=== PATIENT | male | born 1955 | race Caucasian/White ===

== ENCOUNTER 2018-09-25 05:34 | Observation (INO) | payer BC ==
[2018-09-23 14:36] LABS: BASOPHILS % 0.5 % (0.0-1.0); EOSINOPHILS # (AUTO) 0.1 (0.0-0.4); EOSINOPHILS % 1.1 % (0.0-6.0); HEMATOCRIT 36.5 % (38.2-49.6); HEMOGLOBIN 12.6 g/dL (14.0-18.0); LYMPHOCYTES # (AUTO) 1.6 (1.0-3.2); LYMPHOCYTES % 18.6 % (18.0-39.1); MEAN CORPUSCULAR HEMOGLOBIN 30.7 pg (28-32); MEAN CORPUSCULAR HGB CONC 34.5 g/dL (31-35); MONOCYTES # (AUTO) 0.9 (0.2-0.8); MONOCYTES % 10.4 % (4.4-11.3); NEUTROPHILS # (AUTO) 5.6 (2.1-6.9); NEUTROPHILS % 66.1 % (38.7-80.0); PLATELET COUNT 213 x10e3/uL (140-360); RED CELL DISTRIBUTION WIDTH 12.9 % (11.7-14.4)
--- NOTE | 2018-09-23 14:45 | Diagnostic Imaging Report ---
EXAMINATION: PA and lateral views of the chest. COMPARISON: None CLINICAL HISTORY: Preoperative study for spinal surgery. DISCUSSION: Lungs are well-inflated. No focal airspace consolidation, pleural effusion, or pneumothorax. Calcified granuloma laterally within the right lower lobe. Tortuous thoracic aorta with atherosclerotic calcification. Normal heart size without overt pulmonary edema. No acute osseous abnormality. IMPRESSION: No acute cardiopulmonary abnormalities. Signed by: Dr. Colin Braxton M.D. on 09/23/2018 2:41 PM
[2018-09-23 14:46] LABS: INR 0.83; PROTHROMBIN TIME 11.9 seconds (11.9-14.5)
[2018-09-23 14:54] LABS: ANION GAP 10.9 mmol/L (8-16); BLOOD UREA NITROGEN 18 mg/dL (7-26); BUN/CREATININE RATIO 18 (6-25); CALCIUM 8.8 mg/dL (8.4-10.2); CARBON DIOXIDE 28 mmol/L (22-29); CHLORIDE 101 mmol/L (98-107); EST GLOMERULAR FILTRATION RATE > 60 ML/MIN (60-); GLUCOSE 98 mg/dL (74-118); POTASSIUM 3.9 mmol/L (3.5-5.1); SODIUM 136 mmol/L (136-145)
[2018-09-23 15:09] LABS: BLAST CELLS % MANUAL 1; LYMPHOCYTES % (MANUAL) 18 % (19-48); MONOCYTES % (MANUAL) 16 % (3.4-9.0); NEUTROPHILS % (MANUAL) 64 % (40-74)
[~2018-09-25] VITALS: Ht 182.9 cm; Wt 97.2 kg
[~2018-09-25 05:34] MED LIST: FENOFIBRATE145 MG PO; GABAPENTIN100 MG PO; LEXAPRO10 MG PO; LISINOPRIL10 MG PO; NORCO 10-325 T1 EACH PO; SIMVASTATIN40 MG PO; TESTOSTERONE5 GM IJ; TRAZODONE HCL50 MG PO; Z.0.LEXAPRO10 MG; Z.0.LISINOPRIL10 MG; Z.0.LOVASTATIN20 MG
--- OUTSIDE RECORDS SUMMARY | 2018-09-25 05:40 | XMS REPORT | Continuity of Care Document ---
Author Author [facility] Interface Address Unknown Phone Unavailable Problems Problem Status Onset Date Classification Date Reported Comments Source LUMBAR Active 08/18/2018 [facility] Body mass index 25-29 - overweight 05/29/2018 Diagnosis 05/29/2018 [facility] Elevated blood pressure 05/29/2018 Diagnosis 05/29/2018 [facility] Acute sinusitis 05/29/2018 Diagnosis 05/29/2018 [facility] Hypercholesterolemia 05/29/2018 Problem 05/29/2018 [facility] Anxiety 05/29/2018 Problem 05/29/2018 [facility] Hypertensive Disorder 05/29/2018 Problem 05/29/2018 [facility] Radiculopathy, lumbar region 03/01/2018 09/15/2018 [facility] DX: M54.16L KNEE REPLACEMENT 2012 Active 02/12/2018 [facility] M54.16 Active 12/09/2017 [facility] Gastroenteritis 05/08/2017 Diagnosis 05/08/2017 [facility] Acute maxillary sinusitis 03/03/2016 Diagnosis 03/03/2016 [facility] Eustachian tube disorder 03/03/2016 Diagnosis 03/03/2016 [facility] Abnormal blood pressure 03/03/2016 Diagnosis 03/03/2016 [facility] 715.96 Active 07/10/2012 [facility] LEFT KNEE OSTEOARTHRITIS Active 06/03/2012 [facility] 719.46 LEFT Active 04/22/2000 [facility] Cyst of kidney, acquired 09/15/2018 [facility] Spondylosis without myelopathy or radiculopathy, lumbar region 09/15/2018 [facility] Spinal stenosis, lumbar region without neurogenic claudication 09/15/2018 [facility] Anxiety depression Resolved Problem 09/15/2018 [facility] Back pain Resolved Problem 09/15/2018 [facility] HTN - Hypertension Active Problem 09/15/2018 [facility] Injury of knee Active Problem 09/15/2018 [facility] Near syncope Active Problem 09/15/2018 [facility] OA - Osteoarthritis Resolved Problem 09/15/2018 [facility] Spinal stenosis, lumbosacral region 06/28/2018 [facility] Spondylosis without myelopathy or radiculopathy, lumbosacral region 06/28/2018 [facility] depression Resolved Problem 09/04/2012 [facility] Back pain Resolved Problem 09/04/2012 [facility] HTN - Hypertension Active Problem 09/04/2012 [facility] Injury of knee Active Problem 09/04/2012 [facility] Near syncope Active Problem 09/04/2012 [facility] OA - Osteoarthritis Resolved Problem 09/04/2012 [facility] Panic disorder without agoraphobia Active Problem 02/16/2015 April Salter HTN Hypertension - Unspecified essential hypertension Active Problem 02/16/2015 April Salter hyperlipidemia - Other and unspecified hyperlipidemia Active Problem 02/16/2015 April Salter Impotence of organic origin Active Problem 02/16/2015 April Salter Nonspecific abnormal results of liver function study Active Problem 02/16/2015 April Salter Acute bronchitis Active Problem 02/16/2015 April Salter Derangement of posterior horn of medial meniscus Active Problem 02/16/2015 April Salter Agoraphobia with panic disorder Active Problem 02/16/2015 April Salter Knee joint replacement by other means Active Problem 02/16/2015 April Salter Mixed hyperlipidemia Active Problem 02/16/2015 April Salter Generalized anxiety disorder Active Problem 02/16/2015 April Salter Unspecified tinnitus Active Problem 02/16/2015 April Salter Allergic rhinitis due to other allergen Active Problem 02/16/2015 April Salter Other testicular hypofunction Active Problem 02/16/2015 April Salter Impotence Active Problem 02/16/2015 April Salter Rotator cuff sprain and strain Active Problem 02/16/2015 April Salter Depressive disorder, not elsewhere classified Active Problem 02/16/2015 April Salter Other late effects of cerebrovascular disease Active Problem 02/16/2015 April Salter Allergic rhinitis Active Diagnosis 02/16/2015 April Salter Low testosterone Active Diagnosis 02/16/2015 April Salter 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 Active Diagnosis 02/16/2015 April Salter Depression with anxiety Active Diagnosis 02/16/2015 April Salter Hyperlipidemia Active Diagnosis 02/16/2015 April Salter Insomnia Active Problem 03/26/2018 April Salter,[id number] Mixed hyperlipidemia Active Problem 03/26/2018 [id number] Rotator cuff tear arthropathy of right shoulder Active Problem 03/26/2018 [id number] HTN , benign Active Problem 03/26/2018 [id number] Anxiety Active Problem 03/26/2018 [id number] Hypotestosteronemia Active Problem 03/26/2018 [id number] HLD Active Problem 03/26/2018 [id number] Arthritis of right shoulder region Active Problem 03/26/2018 [id number] Hypotestosteronemia Active Diagnosis 02/28/2017 2.16.840.1.004579.4.391.11.55079 Flu vaccine need Active Diagnosis 03/26/2018 [id number] HTN Active Diagnosis 03/01/2016 April Salter,[id number] Rotator cuff injury, right, subsequent encounter Active Diagnosis 06/21/2016 [id number] HTN , malignant Active Diagnosis 08/17/2016 [id number] Encounter for screening Active Diagnosis 03/26/2018 [id number] Lumbar radiculopathy, acute Active Diagnosis 03/26/2018 [id number] Acute Sinusitis Problem 03/03/2016 [facility] Acute Maxillary Sinusitis Problem 03/03/2016 [facility] Upper Respiratory Tract Hypersensitivity Reaction Problem 03/03/2016 [facility] Eustachian Tube Disorder Problem 03/03/2016 [facility] ADMINISTRTVE ENCOUNT NOS Active [facility] LT KNEE TKR Active [facility] Medications Medication Details Route Status Patient Instructions Ordering Provider Order Date Source Tramadol HCl 1 tablet as needed Orally Active 50 mg Orally every 6 hrs Devon 12/20/2017 [id number] Pregabalin 1 capsule Orally Active 75 mg Orally twice a day (bid) Devon 12/20/2017 [id number] BusPIRone HCl 1 tablet Orally Active 15 MG Orally Twice a day Devon 07/20/2016 [id number] Lisinopril 1 tablet Orally Active 30 MG Orally Once a day Devon 06/18/2016 [id number] Lisinopril 1 tablet Orally Active 30 MG Orally Once a day Devon 06/18/2016 [id number] BusPIRone HCl 1 tablet Orally Active 7.5 MG Orally Twice a day Devon 06/18/2016 [id number] Lisinopril 1 tablet Orally Active 20 MG Orally Once a day Devon 06/08/2016 [id number] Fenofibrate 1 tablet Orally Active 48 MG Orally Once a day Devon 12/20/2015 [id number] Aspirin 1 tablet Orally Active 325 MG Orally Once a day Fang 12/11/2015 April Salter Eighty Four 1 tablet as needed Orally Active 7.5-325 MG Orally every 6 hrs Fan 03/05/2014 April Salter rivaroxaban 10 mg oral tablet 10 mg, 1 tab, PO, Daily, 12 tab, Substitution Allowed, TAB PO Active Stevo 07/04/2012 [facility] Zocor 20 mg, 1 tab, Route: PO, Drug form: TAB, QPM, Dosing Weight 90.909, kg, Start date: 07/02/12 9:00:00, Stop date: 07/31/12 17:00:00 PO No Longer Active Stevo 07/02/2012 [facility] lisinopril 10 mg, 1 tab, Route: PO, Drug form: TAB, Daily, Dosing Weight 90.909, kg, Start date: 07/02/12 9:00:00, Duration: 30 day, Stop date: 07/31/12 9:00:00 PO No Longer Active Stevo 07/02/2012 [facility] Lexapro 20 mg, 1 tab, Route: PO, Drug form: TAB, Daily, Dosing Weight 90.909, kg, Start date: 07/02/12 9:00:00, Duration: 30 day, Stop date: 07/31/12 9:00:00 PO No Longer Active Stevo 07/02/2012 [facility] aspirin 81 mg, 1 tab, Route: PO, Drug form: CHEWTAB, Daily, Dosing Weight 90.909, kg, Start date: 07/02/12 9:00:00, Duration: 30 day, Stop date: 07/31/12 9:00:00 PO No Longer Active Stevo 07/02/2012 [facility] rivaroxaban 10 mg, 1 tab, Route: PO, Drug form: TAB, Daily, Start date: 07/01/12 21:00:00, Duration: 30 day, Stop date: 07/30/12 21:00:00 PO No Longer Active [facility] 07/02/2012 [facility] cefazolin 2 gm, 100 mL, Route: IVPB, Drug form: INJ, ABXQ8H, Start date: 07/01/12 16:00:00, Duration: 3 doses or times, Stop date: 07/02/12 8:00:00 IVPB No Longer Active [facility] 07/01/2012 [facility] Toradol 30 mg/mL injectable solution 30 mg, 1 mL, Route: IV, Drug form: INJ, Q8H, Dosing Weight 90.909, kg, PRN Pain, Start date: 07/01/12 14:52:00, Duration: 4 day, Stop date: 07/05/12 14:51:00, If pain greater than 4 IV No Longer Active Stevo 07/01/2012 [facility] Eighty Four 10/325 oral tablet Route: PO, Drug Form: TAB, Dosing Weight 90.909, kg, Q6H, PRN as needed for pain, Start date: 07/01/12 13:56:00, Duration: 30 day, Stop date: 07/31/12 13:55:00 PO No Longer Active Stevo 07/01/2012 [facility] Eighty Four 10/325 oral tablet 1 tab, Route: PO, Drug Form: TAB, Dosing Weight 90.909, kg, Q4H, PRN as needed for pain, Start date: 07/01/12 13:54:00, Duration: 30 day, Stop date: 07/31/12 13:53:00 PO No Longer Active [facility]vo 07/01/2012 [facility] ondansetron 4 mg, 2 mL, Route: IVP, Drug form: INJ, ONCE, Dosing Weight 90.909, kg, PRN Nausea & Vomiting, Start date: 07/01/12 9:57:00, Duration: 1 doses or times, Stop date: Limited # of times IVP No Longer Active [facility] 07/01/2012 [facility] acetaminophen-oxycodone 325 mg-5 mg oral tablet 2 tab, Route: PO, Drug Form: TAB, Dosing Weight 90.909, kg, Q4H, PRN Pain Score 7-10, Start date: 07/01/12 9:57:00, Duration: 30 day, Stop date: 07/31/12 9:56:00 PO No Longer Active [facility] 07/01/2012 [facility] naloxone 0.04 mg, 0.1 mL, Route: IVP, Drug form: INJ, Q2MIN, Dosing Weight 90.909, kg, PRN Narcotic Reversal, Start date: 07/01/12 9:57:00, Duration: 30 day, Stop date: 07/31/12 9:56:00 IVP No Longer Active [facility] 07/01/2012 [facility] ropivacaine 0.2% in NS - site 1 400 mL Dosincc/hr, Route: NERVE BLOCK, Start date: 07/01/12 9:57:00 400 mL, Drug Form: INJ, Dosing Weight 90.909, kg, Duration: 30 day, Stop date: 07/31/12 9:56:00 NERVE BLOCK [facility] rivaroxaban 10 mg, Route: PO, Daily, Dosing Weight 90.909, kg, Start date: 07/01/12 9:00:00, Duration: 30 day, Stop date: 07/30/12 9:00:00 PO No Longer Active [facility] 07/01/2012 [facility] docusate 100 mg, 1 cap, Route: PO, Drug form: CAP, BID, Dosing Weight 90.909, kg, Start date: 07/01/12 9:00:00, Duration: 30 day, Stop date: 07/30/12 17:00:00 PO No Longer Active [facility] 07/01/2012 [facility] flumazenil 0.2 mg, 2 mL, Route: IVP, Drug form: INJ, PRN, Dosing Weight 90.909, kg, PRN Benzodiazepine Reversal, Initial dose, Start date: 07/01/12 8:56:00, Duration: 30 day, Stop date: 07/31/12 8:55:00 IVP No Longer Active [facility] 07/01/2012 [facility] naloxone 0.04 mg, 0.1 mL, Route: IVP, Drug form: INJ, Q2MIN, Dosing Weight 90.909, kg, PRN Narcotic Reversal, Start date: 07/01/12 8:56:00, Duration: 8 doses or times, Stop date: Limited # of times IVP No Longer Active [facility] 07/01/2012 [facility] hydromorphone 0.5 mg, 0.25 mL, Route: IVP, Drug form: INJ, Q5Min, Dosing Weight 90.909, kg, PRN Pain Score 6-10, Start date: 07/01/12 8:56:00, Duration: 5 doses or times, Stop date: Limited # of times IVP No Longer Active [facility] 07/01/2012 [facility] morphine Sulfate 2 mg, 1 mL, Route: IVP, Drug form: INJ, Q5Min, Dosing Weight 90.909, kg, PRN Pain Score 4-6, Start date: 07/01/12 8:56:00, Duration: 8 doses or times, Stop date: Limited # of times IVP No Longer Active [facility] 07/01/2012 [facility] ondansetron 4 mg, 2 mL, Route: IVP, Drug form: INJ, ONCE, Dosing Weight 90.909, kg, PRN Nausea & Vomiting, Start date: 07/01/12 8:56:00 IVP No Longer Active [facility] 07/01/2012 [facility] enalapril 0.625 mg, 0.5 mL, Route: IVP, Drug form: INJ, Q5Min, Dosing Weight 90.909, kg, PRN Elevated BP, Start date: 07/01/12 8:56:00, Duration: 4 doses or times, Stop date: Limited # of times IVP No Longer Active [facility] 07/01/2012 [facility] labetalol 5 mg, 1 mL, Route: IVP, Drug form: INJ, Q5Min, Dosing Weight 90.909, kg, PRN Elevated BP, Start date: 07/01/12 8:56:00, Duration: 5 doses or times, Stop date: Limited # of times IVP No Longer Active [facility] 07/01/2012 [facility] cefazolin (SCIP) 2 gm, Route: IVPB, Drug form: INJ, Q8H, Dosing Weight 90.909, kg, Start date: 07/01/12 8:00:00, Duration: 3 doses or times, Stop date: 07/02/12 0:00:00 IVPB No Longer Active [facility] 07/01/2012 [facility] Saline Flush 0.9% 3 mL, Route: IVP, Drug Form: INJ, Dosing Weight 90.909, kg, PRN, PRN Line Flush, Start date: 07/01/12 7:18:00, Duration: 30 day, Stop date: 07/31/12 7:17:00 IVP No Longer Active [facility] 07/01/2012 [facility] Dextrose 5% with 0.9% NaCl IV 1,000 mL 1,000 mL, Rate: 100 ml/hr, Infuse over: 10 hr, Route: IV, kg, Total Volume: 1,000, Start date: 07/01/12 7:18:00, Duration: 30 day, Stop date: 07/31/12 7:17:00 IV No Longer Active [facility] 07/01/2012 [facility] Eighty Four 10/325 oral tablet 1 tab, Route: PO, Drug Form: TAB, Dosing Weight 90.909, kg, Q4H, PRN Pain, Start date: 07/01/12 7:18:00, Duration: 30 day, Stop date: 07/31/12 7:17:00 PO No Longer Active [facility] 07/01/2012 [facility] Fleet Enema 133 mL, Route: OH, Drug Form: TYLER, Dosing Weight 90.909, kg, PRN, PRN as needed for constipation, Start date: 07/01/12 7:18:00, Duration: 30 day, Stop date: 07/31/12 7:17:00 OH No Longer Active [facility] 07/01/2012 [facility] Milk of Magnesia 30 ml, Route: PO, Drug Form: SUSP, Dosing Weight 90.909, kg, PRN, PRN as needed for constipation, Start date: 07/01/12 7:18:00, Duration: 30 day, Stop date: 07/31/12 7:17:00 PO No Longer Active [facility] 07/01/2012 [facility] promethazine 25 mg, 1 mL, Route: IM, Drug form: INJ, Q8H, Dosing Weight 90.909, kg, PRN Nausea & Vomiting, Start date: 07/01/12 7:18:00, Duration: 30 day, Stop date: 07/31/12 7:17:00 IM No Longer Active [facility] 07/01/2012 [facility] diphenhydrAMINE 25 mg, 1 cap, Route: PO, Drug form: CAP, Q6H, Dosing Weight 90.909, kg, PRN Itching, Start date: 07/01/12 7:18:00, Duration: 30 day, Stop date: 07/31/12 7:17:00 PO No Longer Active [facility] 07/01/2012 [facility] morphine Sulfate 8 mg, 0.8 mL, Route: IM, Drug form: INJ, Q4H, Dosing Weight 90.909, kg, PRN Pain Score 7-10, Start date: 07/01/12 7:18:00, Duration: 30 day, Stop date: 07/31/12 7:17:00 IM No Longer Active [facility] 07/01/2012 [facility] ketorolac 15 mg, 0.5 mL, Route: IVP, Drug form: INJ, Q6H, Dosing Weight 90.909, kg, PRN Breakthrough Pain, Start date: 07/01/12 7:18:00, Duration: 4 doses or times, Stop date: Limited # of times IVP No Longer Active [facility] 07/01/2012 [facility] ondansetron 4 mg, 2 mL, Route: IVP, Drug form: INJ, Q8H, Dosing Weight 90.909, kg, PRN Nausea & Vomiting, Start date: 07/01/12 7:18:00, Duration: 30 day, Stop date: 07/31/12 7:17:00 IVP No Longer Active [facility] 07/01/2012 [facility] zolpidem 5 mg, 1 tab, Route: PO, Drug form: TAB, Bedtime, Dosing Weight 90.909, kg, PRN Insomnia, Start date: 07/01/12 7:18:00, Duration: 30 day, Stop date: 07/31/12 7:17:00 PO No Longer Active [facility] 07/01/2012 [facility] acetaminophen 650 mg, 20.3 mL, Route: PO, Drug form: LIQ, Q4H, Dosing Weight 90.909, kg, PRN Pain/Fever, Start date: 07/01/12 7:18:00, Duration: 30 day, Stop date: 07/31/12 7:17:00 PO No Longer Active [facility] 07/01/2012 [facility] Eighty Four 10/325 oral tablet 1-2 tab, PO, Q4-6H, PRN, 40 tab, Pain, Substitution Allowed, Maintenance PO Active [facility] 07/01/2012 [facility] Lactated Ringers Injection IV 1,000 mL 1,000 mL, Rate: 25 ml/hr, Infuse over: 40 hr, Route: IV, kg, Total Volume: 1,000, Start date: 07/01/12 7:06:00, Duration: 30 day, Stop date: 07/31/12 7:05:00 IV No Longer Active [facility] 07/01/2012 [facility] cefazolin 2 gm, 100 mL, Route: IVPB, Drug form: INJ, VICTORINOALL, Start date: 07/01/12 0:00:00, Duration: 1 doses or times IVPB No Longer Active [facility] 07/01/2012 [facility] aspirin 81 mg, PO, Daily, Substitution Allowed PO Active [facility] 06/13/2012 [facility] Motrin 400 mg oral tablet 400 mg, 1 tab, PO, Q4H, PRN, 60 tab, Pain, Substitution Allowed, TAB PO Active 06/13/2012 [facility] Zocor 20 mg oral tablet 20 mg, 1 tab, PO, Daily, 90 tab, Substitution Allowed, Maintenance PO Active Stevo 06/13/2012 [facility] Lexapro 20 mg oral tablet 20 mg, 1 tab, PO, Daily, 90 tab, Substitution Allowed, TAB PO Active Stevo 06/13/2012 [facility] lisinopril 10 mg oral tablet 10 mg, 1 tab, PO, Daily, 90 tab, Substitution Allowed, TAB PO Active Stevo 06/13/2012 [facility] Eighty Four 10/325 oral tablet 1 tab, PO, Q4H, PRN, 24 tab, for pain, Substitution Allowed, Maintenance PO No Longer Active Stevo 06/13/2012 [facility] Testosterone Cypionate inject 1 ml every 2 weeks as directed Intramuscular Active 200 MG/ML Intramuscular Joie Salter Aspirin 1 tablet Orally Active 325 MG Orally Once a day Joie Salter Escitalopram Oxalate TAKE 1 TABLET BY MOUTH ONCE A DAY NA Active 20 Joie Salter Xanax 1 tablet Orally Active 0.5 MG Orally twice a day (bid) as needed (prn) Joie Salter Flonase 1 spray in each nostril Nasally Active 50 MCG/ACT Nasally Once a day Joie Satler Trazodone HCl 1 tablet by mouth Active 100 MG by mouth Once a day Devon [id number] Simvastatin 1 tablet in the evening Orally Active 40 MG Orally Once a day Devon April Salter,[id number] Fenofibrate 1 tablet Orally Active 48 MG Orally Once a day Devon [id number] Testosterone Cypionate 1 ml Intramuscular Active 200 MG/ML Intramuscular EVERY TWO WEEKS Devon .[id number] Escitalopram Oxalate 1 tablet Orally Active 20 MG Orally Once a day Devon [facility],[id number]. Alprazolam 1 tablet Orally Active 0.5 MG Orally Three times a day Devon [id number] Lisinopril TAKE 1 TABLET BY MOUTH EVERY DAY NA Active 20 Devon [id number]. Escitalopram Oxalate 1 tablet Orally Active 20 mg Orally Once a day Devon [id number]. Lisinopril 1 tablet Orally No Longer Active 10 mg Orally Once a day Devon [facility],[id number] Trazodone HCl 1 tablet at bedtime Orally Active 100 MG Orally Once a day Devon [facility],[id number] Alprazolam 1 tablet Orally Active 0.5 MG Orally Three times a day Devon [id number] Testosterone Cypionate 1 ml Intramuscular Active 200 MG/ML Intramuscular EVERY TWO WEEKS Devon [id number] Trazodone HCl 1 tablet by mouth Active 100 MG by mouth Once a day Devon [id number] Simvastatin 1 tablet in the evening Orally Active 40 MG Orally Once a day Devon [id number]. Alprazolam 0.5 MG Oral Tablet alprazolam 0.5 mg tablet TK 1 T PO TID Active [facility] Amoxicillin 875 MG / Clavulanate 125 MG Oral Tablet [Augmentin] Augmentin 875 mg-125 mg tablet Take 1 tablet every 12 hours by oral route for 10 days. Active [facility] Escitalopram 20 MG Oral Tablet escitalopram 20 mg tablet TK 1 T PO QD Active [facility] Fenofibrate 48 MG Oral Tablet fenofibrate nanocrystallized 48 mg tablet TK 1 T PO QD Active [facility] Fluticasone propionate 0.05 MG/ACTUAT Metered Dose Nasal [facility] fluticasone 50 mcg/actuation nasal spray,suspension [place] 1 spray every day by intranasal route. Active [facility] Lisinopril 30 MG Oral Tablet lisinopril 30 mg tablet TK 1 T PO QD Active [facility] Simvastatin 40 MG Oral Tablet simvastatin 40 mg tablet TK 1 T PO QD IN THE SILVANA Active [facility] 1 ML testosterone cypionate 200 MG/ML Injection testosterone cypionate 200 mg/mL intramuscular oil INJ 1 ML INTRAMUSCULAR Q 2 WEEKS Active [facility] Trazodone Hydrochloride 100 MG Oral Tablet trazodone 100 mg tablet TK 1 T PO QD Active [facility] Metronidazole 500 MG Oral Tablet metronidazole 500 mg tablet Take 1 tablet every 8 hours by oral route as directed for 7 days. Active [facility] testosterone cypionate 200 MG/ML Injectable Solution testosterone cypionate 200 mg/mL intramuscular oil INJECT 1 ML IM Q 2 WEEKS Active [facility] 0.65 ML Varicella-Zoster Virus Vaccine Live ([facility]) strain [id number] UNT/ML Injection [Zostavax] Zostavax (PF) 19,400 unit/0.65 mL subcutaneous suspension Active [facility] Brompheniramine Maleate 0.4 MG/ML / Dextromethorphan Hydrobromide 2 MG/ML / Pseudoephedrine Hydrochloride 6 MG/ML Oral Solution [Bromfed DM] Bromfed DM 2 mg-30 mg-10 mg/5 mL syrup Take 10 mL every 6 hours by oral route as needed for cough. Active [facility] lisinopril lisinopril Active [facility] lovastatin lovastatin Active [facility] Azithromycin 250 MG Oral Tablet Zithromax Z-Donnie 250 mg tablet take as directed Active [facility] benzonatate 200 MG Oral Capsule benzonatate 200 mg capsule Take 1 capsule 3 times a day by oral route as needed for cough. Active [facility] Allergies, Adverse Reactions, Alerts Substance Category Reaction Severity Reaction type Status Date Reported Comments Source Sulfa (Sulfonamide Antibiotics) Other Allergy to substance 10/30/2008 [facility] Sulfur Adverse Reaction rash Adverse Reaction Active 02/14/2015 Kaisen Fang sulfa Adverse Reaction Info Not Available Adverse Reaction Active 02/08/2017 [id number] Codeine Allergy to substance 05/08/2017 [facility] Codeine Sulfate Adverse Reaction Info Not Available Adverse Reaction Active 01/31/2018 [id number] sulfa drugs drug allergy Allergy Active [facility] codeine drug allergy Allergy Active [facility] Immunizations Immunization Date Given Site Status Last Updated Comments Source influenza, injectable, quadrivalent 02/20/2018 completed [facility] INFLUENZA II Multi 01/31/2018 completed [id number] Influenza Vaccine 02/08/2017 completed [id number] influenza, unspecified formulation 01/20/2017 completed [facility] zoster, unspecified formulation 07/20/2016 completed [facility] influenza, seasonal, injectable 01/20/2015 completed [facility] FLU VACCINE NO PRESERV 3 & > 03/05/2014 completed Kaisen Fang Results Order Name Results Value Reference Range Date Interpretation Comments Source Spine lumbar wo contrast MRI Spine lumbar wo contrast MRI Patient Name: BEATRIZ COLEMAN : 1955; Age: 62 years y/o Male MR: [id number] Study: Spine lumbar wo contrast MRI 02/25/2018 7:11 PM [employer] Ordering Physician: Anibal Osorio MD Clinical Indication: M54.16 Radiculopathy, lumbar region - .; Comparison: None TECHNIQUE: Multiplanar T1, T2, STIR weighted noncontrast MRI of the lumbar spine is performed on the 3 Alejandra magnet. FINDINGS: 5 nonrib-bearing lumbar vertebral bodies are presumed to be present. L1-L2 trace retrolisthesis. Otherwise, the alignment is maintained. The vertebral bodies are normal in height. The disc heights are well-maintained. The marrow signal is unremarkable for age. The conus medullaris terminates normally at L1. Small renal cysts are partially visualized. Ultrasound assessment to be considered. Changes by levels: L5-S1: Left laminectomy. Moderate size disc bulge osteophyte complex and facet arthrosis with moderate right and mild left foraminal stenosis. The cauda equina nerve roots are along the periphery of the sac, mild arachnoiditis is not excluded. L4-L5: Moderate-sized disc bulge osteophyte complex and moderate facet arthrosis/ligamentum flavum thickening. There is moderate foraminal stenosis. No central canal and lateral recess stenosis. L3-L4: Moderate-sized disc bulge osteophyte complex asymmetric to the left. Mild facet arthrosis/ligamentum flavum thickening. There is moderate left and mild right foraminal stenosis. The central canal is borderline in caliber. L2-L3: Small disc bulge osteophyte complex and trace retrolisthesis. No stenosis. L1-L2: Small disc bulge osteophyte complex and 2 mm retrolisthesis. No stenosis. T12-L1: Small diffuse disc bulge. No stenosis. IMPRESSION: Degenerative changes in the lower lumbar spine with moderate foraminal stenosis. Left laminectomy at L5-S1. Partially visualized 1.5 cm left renal cysts. Further assessment with ultrasound to be considered.. 02/25/2018 - - Read by: Anne Lazaroap Dictated Date/time: 02/26/18 10:25 Electronically Signed by: Anne Lazaro 02/26/18 10:28 FINAL REPORT [facility] Spine lumbar 2 or 3 views DX Spine lumbar 2 or 3 views DX LUMBAR SPINE Clinical Indication: - M54.16 Radiculopathy, lumbar region Comparison: None FINDINGS: The AP, lateral, and coned-down views of the lumbar spine show five non rib bearing lumbar vertebral segments. There are no fractures, pars defects, or spondylolisthesis. There is narrowing of the L5-S1 disc space and mild anterior spurring diffusely of the lumbar spine. The spinous processes and transverse processes are intact. There is hypertrophic change of the posterior elements of L4-S1. The paraspinal soft tissues are unremarkable. If there is further concern or neurological abnormalities on clinical exam, MRI or CT of the lumbar spine may be performed for complete assessment. IMPRESSION: 1. Narrowing of the L5-S1 disc space. 2. Mild anterior spurring diffusely of the lumbar spine. 3. Hypertrophic degenerative joint disease the posterior elements of L4-S1. SL: [id number] 12/09/2017 - - Read by: Doris Deng MD Dictated Date/time: 12/10/17 00:48 Electronically Signed by: Doris Deng MD 12/10/17 00:57 FINAL REPORT [facility] Influenza A negative 05/08/2017 [facility] Influenza B negative 05/08/2017 [facility] HEMATOLOGY Hct 26.9 % 42.0 - 54.0 07/03/2012 LOW [facility] HEMATOLOGY Hgb 9.1 g/dL 14.0 - 18.0 07/03/2012 LOW [facility] CHEMISTRY eGFR 96 mL/min/1.73m2 07/02/2012 NA 2Result Comment: The eGFR is calculated using the CKD-EPI formula. In most young, healthy individuals the eGFR will be >90 mL/min/1.73m2. The eGFR declines with age. An eGFR of 60-89 may be normal in some populations, particularly the elderly, for whom the CKD-EPI formula has not been extensively validated. Use of the eGFR is not recommended in the following populations: Individuals with unstable creatinine concentrations, including patients and those with serious co-morbid conditions. Patients with extremes in muscle mass or diet. The data above are obtained from the National Kidney Disease Education Program (NKDEP) which additionally recommends that when the eGFR is used in patients with extremes of body mass index for purposes of drug dosing, the eGFR should be multiplied by the estimated BMI. [facility] CHEMISTRY Potassium Lvl 3.9 meq/L 3.5 - 5.1 07/02/2012 Normal [facility] CHEMISTRY Chloride Lvl 104 meq/L 95 - 109 07/02/2012 Normal [facility] CHEMISTRY Calcium Lvl 8.2 mg/dL 8.5 - 10.5 07/02/2012 LOW [facility] CHEMISTRY CO2 31 meq/L 24 - 32 07/02/2012 Normal [facility] CHEMISTRY Glucose Lvl 131 mg/dL 70 - 99 07/02/2012 HI 3Interpretive Data: Adult reference range values reflect the clinical guidelines of the [place] [employer]. [facility] CHEMISTRY Sodium Lvl 145 meq/L 135 - 145 07/02/2012 Normal [facility] CHEMISTRY Creatinine Lvl 0.9 mg/dL 0.5 - 1.4 07/02/2012 Normal [facility] CHEMISTRY BUN 12 mg/dL 7 - 22 07/02/2012 Normal [facility] CHEMISTRY AGAP 13.9 meq/L 10.0 - 20.0 07/02/2012 [facility] HEMATOLOGY Monocytes # 1.5 K/CMM 0.0 - 0.8 07/02/[address] [facility] HEMATOLOGY Basophils # 0.0 K/CMM 0.0 - 0.2 07/02/2012 [facility] HEMATOLOGY Eosinophils # 0.0 K/CMM 0.0 - 0.5 07/02/2012 [facility] HEMATOLOGY Lymphocytes # 1.3 K/CMM 1.0 - 5.5 07/02/2012 [facility] HEMATOLOGY Eosinophils 0.2 % 0.0 - 4.0 07/02/2012 [facility] HEMATOLOGY Segs-Bands # 7.4 K/CMM 1.5 - 8.1 07/02/2012 [facility] HEMATOLOGY Lymphocytes 12.5 % 20.0 - 40.0 07/02/2012 [facility] HEMATOLOGY Basophils 0.2 % 0.0 - 1.0 07/02/2012 [facility] HEMATOLOGY Segs 72.6 % 45.0 - 75.0 07/02/2012 [facility] HEMATOLOGY Monocytes 14.5 % 2.0 - 12.0 07/02/[address] [facility] HEMATOLOGY Hgb 10.9 g/dL 14.0 - 18.0 07/02/2012 [facility] HEMATOLOGY Hct 32.3 % 42.0 - 54.0 07/02/2012 [facility] HEMATOLOGY MCV 92.4 fL 80.0 - 94.0 07/02/2012 [facility] HEMATOLOGY MCH 31.3 pg 27.0 - 31.0 07/02/[address] [facility] HEMATOLOGY MCHC 33.8 g/dL 32.0 - 36.0 07/02/2012 [facility] HEMATOLOGY RDW 12.8 % 11.5 - 14.5 07/02/2012 [facility] HEMATOLOGY Platelet 179 K/CMM 133 - 450 07/02/2012 [facility] HEMATOLOGY MPV 8.3 fL 7.4 - 10.4 07/02/2012 [facility] HEMATOLOGY WBC 10.1 K/CMM 3.7 - 10.4 07/02/2012 [facility] HEMATOLOGY RBC 3.50 M/CMM 4.70 - 6.10 07/02/2012 [facility] BACTERIAL - SEROLOGY MRSA by PCR Negative 1 (06/13/2012 13:18:00) 06/13/2012 Normal 1Interpretive Data: Interpretive Data: The [employer] LightCycler MRSA assay is a qualitative test for the direct detection of nasal colonization with methicillin-resistant Staphylococcus aureus (MRSA) to aid in the prevention and control of MRSA infections in healthcare settings. A positive result does not indicate an infection or require treatment. A negative result does not exclude colonization or infection. The polymerase chain reaction (PCR) assay detects a proprietary sequence indicative of the integration of the SCCmec cassette into the Staphylococcus aureus chromosome, indicating the presence of MRSA DNA. The assay utilizes FDA cleared IVD reagents. Performance characteristics have been verified by the [facility] within the [facility]. The [facility] Laboratory is authorized under the Clinical Laboratory Improvement Amendment of 1988 (CLIA-88) to perform high complexity testing. [facility] CHEMISTRY Potassium Lvl 4.1 meq/L 3.5 - 5.1 06/13/2012 Normal [facility] CHEMISTRY Sodium Lvl 140 meq/L 135 - 145 06/13/2012 Normal [facility] HEMATOLOGY Hct 45.0 % 42.0 - 54.0 06/13/2012 Normal [facility] HEMATOLOGY Hgb 15.2 g/dL 14.0 - 18.0 06/13/2012 Normal [facility] Vital Signs Vital Sign Value Date Comments Source Diastolic (mm Hg) 80 05/29/2018 [facility] Height 72 05/29/2018 [facility] Systolic (mm Hg) 122 05/29/2018 [facility] Weight 202 05/29/2018 [facility] Weight 196.7 01/31/2018 2.16.840.1.170364.4.391.11.77386 Height 72.0 01/31/2018 2.16.840.1.101454.4.391.11.48428 Temperature Oral (F) 96.8 F 01/31/2018 2.16.840.1.034091.4.391.11.38614 Heart Rate 58 01/31/2018 2.16.840.1.319202.4.391.11.53726 Diastolic (mm Hg) 78 01/31/2018 2.16.840.1.352660.4.391.11.55440 Systolic (mm Hg) 134 01/31/2018 2.16.840.1.131009.4.391.11.84121 Diastolic (mm Hg) 80 05/08/2017 [facility] Height 72 05/08/2017 [facility] Systolic (mm Hg) 130 05/08/2017 [facility] Weight 198 05/08/2017 [facility] Weight 198.7 02/08/2017 2.16.840.1.370675.4.391.11.29082 Height 72.0 02/08/2017 2.16.840.1.988548.4.391.11.33274 Temperature Oral (F) 96.3 F 02/08/2017 2.16.840.1.049658.4.391.11.33340 Heart Rate 74 02/08/2017 2.16.840.1.845002.4.391.11.64930 Diastolic (mm Hg) 70 02/08/2017 2.16.840.1.203308.4.391.11.98535 Systolic (mm Hg) 132 02/08/2017 2.16.840.1.660431.4.391.11.99722 Weight 195 11/23/2016 2.16.840.1.733519.4.391.11.39335 Height 72.0 11/23/2016 2.16.840.1.157917.4.391.11.44592 Temperature Oral (F) 97.6 F 11/23/2016 2.16.840.1.811214.4.391.11.77587 Heart Rate 74 11/23/2016 2.16.840.1.416245.4.391.11.96278 Diastolic (mm Hg) 81 11/23/2016 2.16.840.1.048380.4.391.11.47770 Systolic (mm Hg) 135 11/23/2016 2.16.840.1.895048.4.391.11.74864 Weight 204 09/14/2016 2.16.840.1.158906.4.391.11.69387 Height 72.0 09/14/2016 2.16.840.1.102257.4.391.11.16530 Temperature Oral (F) 97.6 F 09/14/2016 2.16.840.1.724443.4.391.11.89184 Heart Rate 93 09/14/2016 2.16.840.1.399509.4.391.11.81051 Diastolic (mm Hg) 73 09/14/2016 2.16.840.1.109694.4.391.11.06727 Systolic (mm Hg) 131 09/14/2016 2.16.840.1.418019.4.391.11.23248 Weight 200 07/20/2016 2.16.840.1.830313.4.391.11.73206 Height 72.0 07/20/2016 2.16.840.1.727245.4.391.11.74962 Temperature Oral (F) 97.6 F 07/20/2016 2.16.840.1.962687.4.391.11.10811 Heart Rate 76 07/20/2016 2.16.840.1.624426.4.391.11.47836 Diastolic (mm Hg) 74 07/20/2016 2.16.840.1.090466.4.391.11.71619 Systolic (mm Hg) 105 07/20/2016 2.16.840.1.647718.4.391.11.63159 Weight 203 06/18/2016 2.16.840.1.590929.4.391.11.59544 Height 72.0 06/18/2016 2.16.840.1.470452.4.391.11.00269 Temperature Oral (F) 98.1 F 06/18/2016 2.16.840.1.423300.4.391.11.40679 Heart Rate 86 06/18/2016 2.16.840.1.081173.4.391.11.51566 Diastolic (mm Hg) 98 06/18/2016 2.16.840.1.759389.4.391.11.15696 Systolic (mm Hg) 180 06/18/2016 2.16.840.1.401850.4.391.11.00264 Weight 195 06/08/2016 2.16.840.1.378072.4.391.11.67679 Height 72.0 06/08/2016 2.16.840.1.869734.4.391.11.09601 Temperature Oral (F) 97.7 F 06/08/2016 2.16.840.1.899949.4.391.11.44422 Heart Rate 5 06/08/2016 2.16.840.1.074723.4.391.11.28555 Diastolic (mm Hg) 108 06/08/2016 2.16.840.1.221707.4.391.11.71541 Systolic (mm Hg) 191 06/08/2016 2.16.840.1.689355.4.391.11.89882 Diastolic (mm Hg) 86 03/03/2016 [facility] Height 72 03/03/2016 [facility] Systolic (mm Hg) 138 03/03/2016 [facility] Weight 198 03/03/2016 [facility] Weight 201.3 02/14/2016 2.16.840.1.131610.4.391.11.09349 Height 72.0 02/14/2016 2.16.840.1.249375.4.391.11.87205 Temperature Oral (F) 98.5 F 02/14/2016 2.16.840.1.452884.4.391.11.73493 Heart Rate 84 02/14/2016 2.16.840.1.001005.4.391.11.42700 Diastolic (mm Hg) 80 02/14/2016 2.16.840.1.315067.4.391.11.26143 Systolic (mm Hg) 140 02/14/2016 2.16.840.1.326842.4.391.11.65467 Diastolic (mm Hg) 82 10/01/2015 [facility] Height 72 10/01/2015 [facility] Systolic (mm Hg) 122 10/01/2015 [facility] Weight 200 10/01/2015 [facility] Weight 197.4 02/14/2015 April Salter Height 71.5 02/14/2015 Kaisen Fang Temperature Oral (F) 98.5 F 02/14/2015 Kaisen Fang Heart Rate 95 02/14/2015 Kaisen Fang Diastolic (mm Hg) 80 02/14/2015 Kaisen Fang Systolic (mm Hg) 130 02/14/2015 Kaisen Fang Respitory Rate 18 02/14/2015 Kais[facility] Fang Weight 206.6 03/05/2014 Kaisen Fang Height 71.5 03/05/2014 Kaisen Fang Temperature Oral (F) 98.6 F 03/05/2014 Kaisen Fang Heart Rate 69 03/05/2014 Kaisen Fang Diastolic (mm Hg) 92 03/05/2014 Kaisen Fang Systolic (mm Hg) 138 03/05/2014 Kaisen Fang Respitory Rate 18 03/05/2014 Kaisen Fang Weight 207.8 02/16/2013 Kaisen Fang Height 71.5 02/16/2013 Kaisen Fang Temperature Oral (F) 98.3 F 02/16/2013 Kaisen Fang Heart Rate 66 02/16/2013 Kaisen Fang Diastolic (mm Hg) 80 02/16/2013 Kaisen Fang Systolic (mm Hg) 122 02/16/2013 Kaisen Fang Diastolic (mm Hg) 69 07/04/2012 [facility] Temperature Oral (F) 99 F 07/04/2012 [facility] Heart Rate 86 07/04/2012 [facility] Respitory Rate 18 07/04/2012 [facility] Systolic (mm Hg) 109 07/04/2012 [facility] Respitory Rate 18 07/04/2012 [facility] Heart Rate 98 07/04/2012 [facility] Diastolic (mm Hg) 62 07/04/2012 [facility] Systolic (mm Hg) 105 07/04/2012 [facility] Temperature Oral (F) 98.3 F 07/04/2012 [facility] Diastolic (mm Hg) 70 07/04/2012 [facility] Systolic (mm Hg) 120 07/04/2012 [facility] Temperature Oral (F) 97.9 F 07/04/2012 [facility] Respitory Rate 18 07/04/2012 [facility] Heart Rate 85 07/04/2012 [facility] Height 182 cm 07/01/2012 [facility] Weight 90.909 07/01/2012 [facility] Weight 90.909 06/13/2012 [facility] Height 182.88 cm 06/13/2012 [facility] Encounters Location Location Details Encounter Type Encounter Number Reason For Visit Attending Provider ADM Date DC Date Status Source [facility] Outpatient [id number] 719.46 LEFT STEPHEN GABRIEL 05/30/2012 Active [facility] Inpatient [id number] LEFT KNEE OSTEOARTHRITIS STEPHEN RIOS 07/01/2012 07/04/2012 Active [facility] Outpatient [id number] STEPHENFILOMENA RIOS 07/10/2012 Active [facility] TH [id number] LT KNEE TKR [facility]2012 Active [facility] Clover Salter MD Unknown [id number] 05/01/2013 05/01/2013 April Salter MD Unknown [id number] 05/01/2013 05/01/2013 April Salter MD Unknown [id number] 05/01/2013 05/01/2013 April Salter MD Follow-up for mutiple problems [id number] 03/05/2014 03/05/2014 April Salter MD Follow-up for mutiple problems [id number] 03/05/2014 03/05/2014 April Salter MD Follow-Up [id number] 02/14/2015 02/14/2015 April Salter [place] - [facility] - [id number] Newman, [employer]: [address] [place] [address], Ph. [phone] [id number] Mirna Newman 10/01/2015 [facility] Unknown [id number] 12/20/2015 12/20/2015 2.16.840.1.309816.4.391.11.15986 [facility] Unknown [id number] 12/20/2015 12/20/2015 2.16.840.1.341998.4.391.11.14963 [facility] Unknown [id number] 12/20/2015 12/20/2015 2.16.840.1.474370.4.391.11.82885 [facility] Unknown [id number] 12/20/2015 12/20/2015 2.16.840.1.567302.4.391.11.31936 [facility] 3 month f/u [id number] 02/14/2016 02/14/2016 2.16.840.1.673099.4.391.11.73951 [facility] 3 month f/u [id number] 02/14/2016 02/14/2016 2.16.840.1.045233.4.391.11.53216 [facility] Unknown [id number] 02/27/2016 02/27/2016 2.16.840.1.662792.4.391.11.61647 [facility] Unknown [id number] 02/27/2016 02/27/2016 2.16.840.1.209728.4.391.11.69318 [facility] Unknown [id number] 02/27/2016 02/27/2016 2.16.840.1.066432.4.391.11.67509 [place] - [facility] - [id number] Lyndsey Vazquez, [employer]: [address] [place] [address], Ph. [id number] Lyndsey Vazquez 03/03/2016 [facility] Unknown [id number] 06/08/2016 06/08/2016 2.16.840.1.906020.4.391.11.72827 [place] - [facility] - [id number]_Kfkrjngx Mariposa Berman, [employer]-C: [address] [place] [address], Ph. [id number] Mariposa Berman 05/08/2017 [facility] Outpatient [id number] Adnan Devon 12/09/2017 12/10/2017 [facility] Outpatient [id number] Adnan Devon 02/26/2018 02/26/2018 [facility] - [facility] - [id number] Grace West, [employer]-C: [address] [place] [address], Ph. [id number] Grace West 05/29/2018 [facility] Procedures Procedure Code Date Perfomer Comments Source Lumbar discectomy [id number] 04/22/1998 [facility] Lumbar discectomy [id number] 04/22/1998 [facility] Cholecystectomy [id number] [facility] Knee joint operation<sup>1</sup> [id number] multiple "x 7" [facility] Cholecystectomy [id number] [facility] Knee joint operation <sup>1</sup> [id number] 1multiple "x 7" [facility] Shoulder Joint Surgery 47736 [facility] Knee Arthroscopy/surgery 81741 [facility] Cholecystectomy [facility] Removal of Tonsils [facility]
--- OUTSIDE RECORDS SUMMARY | 2018-09-25 05:41 | XMS REPORT ---
Author Author Anibal Osorio [facility] eClinicalWorks Address Unknown Phone Unavailable Care Team Providers Care Networking Specialist Name Role Phone Anibal Osorio CP Unavailable Allergies No Known Allergies Problems Problem Type Condition Code Onset Dates Condition Status Problem Hypotestosteronemia E29.1 Active Assessment Insomnia G47.00 Active Problem HTN (hypertension), benign I10 Active Problem Mixed hyperlipidemia E78.2 Active Problem Arthritis of right shoulder region M19.011 Active Problem Insomnia G47.00 Active Problem Anxiety F41.9 Active Problem Rotator cuff tear arthropathy of right shoulder M12.811 Active Problem HLD (hyperlipidemia) E78.5 Active Medications Medication Code System Code Instructions Start Date End Date Status Dosage Trazodone HCl [facility] [place] [address]-03 100 MG by mouth Once a day Active 1 tablet Results No Known Results Summary Purpose eClinicalWorks Submission
--- OUTSIDE RECORDS SUMMARY | 2018-09-25 05:41 | XMS REPORT ---
Author Author April Salter [facility] eClinicalWorks Address Unknown Phone Unavailable Care Team Providers Care Biological Lab Technician Name Role Phone April Salter Unavailable Allergies, Adverse Reactions, Alerts Substance Reaction Event Type Codeine throat swelling Drug Allergy Sulfur rash Drug Allergy Encounters Encounter Location Date Unknown April Salter MD May 01, 2013 Follow-up for mutiple problems April Salter MD Mar 05, 2014 Follow-Up April Salter MD Feb 14, 2015 Problems Problem Type Condition ICD-9 Code Onset Dates Condition Status Assessment Insomnia G47.00 Active Assessment Allergic rhinitis J30.9 Active Assessment Low testosterone E29.1 Active Assessment Old cerebrovascular accident (CVA) without late effect Z86.73 Active Assessment Depression with anxiety F41.8 Active Assessment Hyperlipidemia E78.5 Active Assessment HTN (hypertension) I10 Active Problem Acute bronchitis 466.0 Active Problem Generalized anxiety disorder 300.02 Active Problem 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 Problem Unspecified tinnitus 388.30 Active Problem Depressive disorder, not elsewhere classified 311 Active Problem Rotator cuff (capsule) sprain and strain 840.4 Active Problem Impotence 607.84 Active Problem Hyperlipidemia E78.5 Active Problem Depression with anxiety F41.8 Active Problem Panic disorder without agoraphobia 300.01 Active Problem Other testicular hypofunction 257.2 Active Problem HTN (hypertension) I10 Active Problem Allergic rhinitis due to other allergen 477.8 Active Problem Insomnia G47.00 Active Problem Allergic rhinitis J30.9 Active Problem Old cerebrovascular accident (CVA) without late effect Z86.73 Active Problem Low testosterone E29.1 Active Problem 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 Problem Derangement of posterior horn of medial meniscus 717.2 Active Problem hyperlipidemia - Other and unspecified hyperlipidemia 272.4 Active Problem HTN Hypertension - Unspecified essential hypertension 401.9 Active Problem Nonspecific abnormal results of liver function study 794.8 Active Problem Impotence of organic origin 607.84 Active Problem Mixed hyperlipidemia 272.2 Active Problem Knee joint replacement by other means V43.65 Active Medications Medication Code System Code Instructions Start Date End Date Status Dosage Escitalopram Oxalate [facility] [address]-20 20 MG Orally Once a day Active 1 tablet Aspirin [facility] [address]-61 325 MG Orally Once a day Dec 11, 2015 Active 1 tablet Flonase [facility] [address]-06 50 MCG/ACT Nasally Once a day Active 1 spray in each nostril Trazodone HCl [facility] [address]-36 100 mg Orally once every night for sleep Active 1 tablet at bedtime Simvastatin [facility] [address]-53 40 mg Orally Once a day Active 1 tablet every evening Lisinopril [facility] [address]-22 10 MG Orally Active take 1 tablet by mouth once a day Xanax [facility] [address]-37 0.5 MG Orally twice a day (bid) as needed (prn) Active 1 tablet Testosterone Cypionate [facility] [address]-45 200 MG/ML Intramuscular Active inject 1 ml every 2 weeks as directed Social History Social History Element Qualifiers Date Reported Do you take aspirin or a blood thinner drug? . YES Mariah Loza 02/16/2013 2:00:52 PM > Feb 14, 2015 Tobacco Use: . Are you a: former smoker quit since 06/2010Feb 14, 2015 Marital Status: . MarriedMariah Loza 02/16/2013 2:01:02 PM > Feb 14, 2015 Do you drink alcohol? . Status: No Feb 14, 2015 Vital Signs Date/Time: Feb 14, 2015 Weight 197.4 lbs Height 71.5 in Temperature 98.5 F Cardiac Monitoring Heart Rate 95 /min Blood Pressure Diastolic 80 mm Hg Blood Pressure Systolic 130 mm Hg Respiratory Rate 18 /min Results Complete Blood Count w/ Diff and Platelet MPV(-7.4-10.4 fl) 9.1 Hgb(-14.0-18.0 g/dL) 16.7 Hct(-42.0-54.0 %) 51.1 MCV(-80.0-94.0 fl) 93.0 MCH(-27.0-31.0 pg) 30.4 MCHC(-32.0-36.0 g/dL) 32.6 RDW(-11.5-14.5 %) 12.2 Platelet(-133-450 K/CMM) 237 WBC(-3.7-10.4 K/CMM) 15.5 RBC(-4.70-6.10 M/CMM) 5.49 Testosterone Level Total Testosterone Tot(-241-827 ng/dL) 116 Hgb A1c Hgb A1C(-<=5.6 %) 5.4 Comprehensive Metabolic Panel Creatinine Lvl(-0.5-1.4 mg/dL) 0.8 Glucose Lvl(-70-99 mg/dL) 115 B/C Ratio(-6-25 ) 16 BUN(-7-22 mg/dL) 13 Albumin Lvl(-3.5-5.0 g/dL) 4.4 Globulin(-2.0-4.0 g/dL) 3.2 Total Protein(-6.4-8.4 g/dL) 7.6 ALT(-0-65 U/L) 36 CO2(-24-32 mEq/L) 27 AST(-0-37 U/L) 28 AGAP(-10.0-20.0 mEq/L) 8.1 Potassium Lvl(-3.5-5.1 mEq/L) 5.1 A/G Ratio(-0.7-1.6 ) 1.4 Calcium Lvl(-8.5-10.5 mg/dL) 9.0 Chloride Lvl(-95-109 mEq/L) 107 eGFR(- mL/min/1.73m2) 98 Sodium Lvl(-135-145 mEq/L) 137 Alk Phos(-39-136 U/L) 105 Bili Total(-0.2-1.3 mg/dL) 0.4 Auto Diff Monocytes #(-0.0-0.8 K/CMM) 0.7 Lymphocytes #(-1.0-5.5 K/CMM) 2.0 Segs-Bands #(-1.5-8.1 K/CMM) 12.6 Basophils(-0.0-1.0 %) 0.5 Basophils #(-0.0-0.2 K/CMM) 0.1 Eosinophils(-0.0-4.0 %) 0.4 Lymphocytes(-20.0-40.0 %) 13.0 Monocytes(-2.0-12.0 %) 4.8 Segs(-45.0-75.0 %) 81.3 Eosinophils #(-0.0-0.5 K/CMM) 0.1 Summary Purpose eClinicalWorks Submission
--- OUTSIDE RECORDS SUMMARY | 2018-09-25 05:41 | XMS REPORT | CCD ---
Author Author Auto Generated Organization [facility] Address Unknown Phone Unavailable Care Team Providers Care Diversified Crops Ii Farmworker Name Role Phone Jose Figueroa CP Allergies, Adverse Reactions, Alerts Substance Reaction Status codeine Active sulfa drugs Active Problem List Condition Effective Dates Status Anxiety depression Resolved Back pain Resolved HTN - Hypertension Active HTN - Hypertension Resolved Injury of knee Active Near syncope Active OA - Osteoarthritis Resolved
--- OUTSIDE RECORDS SUMMARY | 2018-09-25 05:41 | XMS REPORT | Summary of Care ---
Author Author [facility] Organization [facility] Address Unknown Phone Unavailable Care Team Providers Care Learning Support Services Director Name Role Phone Anibal Osorio PCP Encounter HQ Encntr_jimi(FIN) [id number] Date(s): 02/25/18 - 02/25/18 [facility] [address] [place] [address]- [phone] Encounter Diagnosis Radiculopathy, lumbar region (Final) - 02/28/18 Cyst of kidney, acquired (Final) - Spondylosis without myelopathy or radiculopathy, lumbar region (Final) - Spinal stenosis, lumbar region without neurogenic claudication (Final) - Discharge Disposition: Home or Self Care Attending Physician: Anibal Osorio MD Referring Physician: Anibal Osorio MD Vital Signs No data available for this section Problem List Condition Effective Dates Status Health Status Informant Anxiety Resolved depression(Confirmed ) Back pain(Confirmed) Resolved HTN - Active Hypertension(Confirm ed) HTN - Resolved Hypertension(Confirm ed) Injury of Active knee(Confirmed) Near Active syncope(Confirmed) OA - Resolved Osteoarthritis(Confi rmed) Allergies, Adverse Reactions, Alerts Substance Reaction Severity Status sulfa drugs Active codeine Active Medications No data available for this section Results No data available for this section Immunizations No data available for this section Procedures Procedure Date Related Diagnosis Body Site Status Lumbar discectomy 1998 Completed Cholecystectomy Completed Knee joint operation1 Completed 1multiple "x 7" Social History Social History Type Response Assessment and Plan No data available for this section
--- OUTSIDE RECORDS SUMMARY | 2018-09-25 05:41 | XMS REPORT ---
Author Author Anibal Osorio [facility]Works Address Unknown Phone Unavailable Care Team Providers Care Snowboarding Instructor Name Role Phone Anibal Osorio CP Unavailable Allergies No Known Allergies Problems Problem Type Condition Code Onset Dates Condition Status Problem Hypotestosteronemia E29.1 Active Assessment Mixed hyperlipidemia E78.2 Active Problem HTN (hypertension), benign I10 Active Problem Mixed hyperlipidemia E78.2 Active Problem Arthritis of right shoulder region M19.011 Active Problem Insomnia G47.00 Active Problem Anxiety F41.9 Active Problem Rotator cuff tear arthropathy of right shoulder M12.811 Active Problem HLD (hyperlipidemia) E78.5 Active Medications Medication Code System Code Instructions Start Date End Date Status Dosage Simvastatin [facility] [address]-86 40 MG Orally Once a day Active 1 tablet in the evening Results No Known Results Summary Purpose eClinicalWorks Submission
--- OUTSIDE RECORDS SUMMARY | 2018-09-25 05:41 | XMS REPORT ---
Author Author April Salter [facility] eClinicalWorks Address Unknown Phone Unavailable Care Team Providers Care Social Media Sr Strategy Manager Name Role Phone April Salter Unavailable Encounters Encounter Location Date Unknown April Salter MD May 01, 2013 Problems Problem Type Condition ICD-9 Code Onset Dates Condition Status Problem Panic disorder without agoraphobia 300.01 Active Problem HTN Hypertension - Unspecified essential hypertension 401.9 Active Problem hyperlipidemia - Other and unspecified hyperlipidemia 272.4 Active Problem Impotence of organic origin 607.84 Active Problem Nonspecific abnormal results of liver function study 794.8 Active Problem Acute bronchitis 466.0 Active Problem Derangement of posterior horn of medial meniscus 717.2 Active Problem 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 . YES Mariah Loza 02/16/2013 2:00:52 PM > Feb 16, 2013 Tobacco Use: . Are you a: former smoker quit since 06/2010Feb 16, 2013 Marital Status: . MarriedJessica LozaAnn 02/16/2013 2:01:02 PM > Feb 16, 2013 Do you drink alcohol? . Status: No Feb 16, 2013 Vital Signs Date/Time: Feb 16, 2013 Weight 207.8 lbs Height 71.5 inches Temperature 98.3 F Cardiac Monitoring Heart Rate 66 Beats per Minute Blood Pressure Diastolic 80 mm Hg Blood Pressure Systolic 122 mm Hg Summary Purpose eClinicalWorks Submission
--- OUTSIDE RECORDS SUMMARY | 2018-09-25 05:41 | XMS REPORT ---
Author Author Anibal Osorio [facility] eClinicalWorks Address Unknown Phone Unavailable Care Team Providers Care Template Clerk Name Role Phone Anibal Osorio CP Unavailable Allergies, Adverse Reactions, Alerts Substance Reaction Event Type sulfa Info Not Available Drug Allergy Codeine Sulfate Info Not Available Drug Allergy Problems Problem Type Condition Code Onset Dates Condition Status Assessment Anxiety F41.9 Active Problem Hypotestosteronemia E29.1 Active Assessment HTN (hypertension), benign I10 Active Assessment Arthritis of right shoulder region M19.011 Active Assessment Insomnia G47.00 Active Problem HTN (hypertension), benign I10 Active Problem Mixed hyperlipidemia E78.2 Active Problem Arthritis of right shoulder region M19.011 Active Problem Insomnia G47.00 Active Problem Anxiety F41.9 Active Problem Rotator cuff tear arthropathy of right shoulder M12.811 Active Problem HLD (hyperlipidemia) E78.5 Active Medications Medication Code System Code Instructions Start Date End Date Status Dosage BusPIRone HCl [facility] [address]-31 15 MG Orally Twice a day July 20, 2016 Active 1 tablet Trazodone HCl [facility] [address]-73 100 MG by mouth Once a day Active 1 tablet Simvastatin [facility] [address]-76 40 MG Orally Once a day Active 1 tablet in the evening Lisinopril [facility] [address]-63 30 MG Orally Once a day Jun 18, 2016 Active 1 tablet Fenofibrate [facility] 49410285827 48 MG Orally Once a day Active 1 tablet Testosterone Cypionate [facility] [address]-59 200 MG/ML Intramuscular EVERY TWO WEEKS Active 1 ml Escitalopram Oxalate [facility] [address]-14 20 MG Orally Once a day Active 1 tablet Alprazolam [facility] [address]-89 0.5 MG Orally Three times a day Active 1 tablet Vital Signs Date/Time: September 14, 2016 BMI 27.66 Index Weight 204 lbs Height 72.0 in Temperature 97.6 F Cardiac Monitoring Heart Rate 93 /min Blood Pressure Diastolic 73 mm Hg Blood Pressure Systolic 131 mm Hg Results No Known Results Summary Purpose eClinicalWorks Submission
--- OUTSIDE RECORDS SUMMARY | 2018-09-25 05:41 | XMS REPORT | CCD ---
Author Author Auto Generated Organization [facility] Address Unknown Phone Unavailable Care Team Providers Care Material Cutter Name Role Phone Jose Figueroa RP Allergies, Adverse Reactions, Alerts Substance Reaction Status codeine Active sulfa drugs Active Problem List Condition Effective Dates Status Anxiety depression Resolved Back pain Resolved HTN - Hypertension Active HTN - Hypertension Resolved Injury of knee Active Near syncope Active OA - Osteoarthritis Resolved Medications Medication Instructions Start Date End Date Status Zocor 20 mg oral 20 mg, 1 tab, PO, Daily, 90 tab, 06/13/2012 07/13/2012 Ordered tablet Substitution Allowed, Maintenance Lexapro 20 mg oral 20 mg, 1 tab, PO, Daily, 90 tab, 06/13/2012 Ordered tablet Substitution Allowed, TAB lisinopril 10 mg 10 mg, 1 tab, PO, Daily, 90 tab, 06/13/2012 Ordered oral tablet Substitution Allowed, TAB [place] 10/325 oral 1 tab, PO, Q4H, PRN, 24 tab, for 06/13/2012 07/04/2012 Discontinued tablet pain, Substitution Allowed, Maintenance rivaroxaban 10 mg, 1 tab, Route: PO, Drug form: 07/01/2012 07/04/2012 Discontinued TAB, Daily, Start date: 07/01/12 21:00:00, Duration: 30 day, Stop date: 07/30/12 21:00:00 Toradol 30 mg/mL 30 mg, 1 mL, Route: IV, Drug form: 07/01/2012 07/04/2012 Discontinued injectable solution INJ, Q8H, Dosing Weight 90.909, kg, PRN Pain, Start date: 07/01/12 14:52:00, Duration: 4 day, Stop date: 07/05/12 14:51:00, If pain greater than 4 flumazenil 0.2 mg, 2 mL, Route: IVP, Drug 07/01/2012 07/04/2012 Discontinued form: INJ, PRN, Dosing Weight 90.909, kg, PRN Benzodiazepine Reversal, Initial dose, Start date: 07/01/12 8:56:00, Duration: 30 day, Stop date: 07/31/12 8:55:00 naloxone 0.04 mg, 0.1 mL, Route: IVP, Drug 07/01/2012 07/04/2012 Discontinued form: INJ, Q2MIN, Dosing Weight 90.909, kg, PRN Narcotic Reversal, Start date: 07/01/12 8:56:00, Duration: 8 doses or times, Stop date: Limited # of times hydromorphone 0.5 mg, 0.25 mL, Route: IVP, Drug 07/01/2012 07/04/2012 Discontinued form: INJ, Q5Min, Dosing Weight 90.909, kg, PRN Pain Score 6-10, Start date: 07/01/12 8:56:00, Duration: 5 doses or times, Stop date: Limited # of times morphine Sulfate 2 mg, 1 mL, Route: IVP, Drug form: 07/01/2012 07/04/2012 Discontinued INJ, Q5Min, Dosing Weight 90.909, kg, PRN Pain Score 4-6, Start date: 07/01/12 8:56:00, Duration: 8 doses or times, Stop date: Limited # of times ondansetron 4 mg, 2 mL, Route: IVP, Drug form: 07/01/2012 07/04/2012 Discontinued INJ, ONCE, Dosing Weight 90.909, kg, PRN Nausea & Vomiting, Start date: 07/01/12 8:56:00 enalapril 0.625 mg, 0.5 mL, Route: IVP, Drug 07/01/2012 07/04/2012 Discontinued form: INJ, Q5Min, Dosing Weight 90.909, kg, PRN Elevated BP, Start date: 07/01/12 8:56:00, Duration: 4 doses or times, Stop date: Limited # of times labetalol 5 mg, 1 mL, Route: IVP, Drug form: 07/01/2012 07/04/2012 Discontinued INJ, Q5Min, Dosing Weight 90.909, kg, PRN Elevated BP, Start date: 07/01/12 8:56:00, Duration: 5 doses or times, Stop date: Limited # of times cefazolin 2 gm, 100 mL, Route: IVPB, Drug 07/01/2012 07/02/2012 Completed form: INJ, ABXQ8H, Start date: 07/01/12 16:00:00, Duration: 3 doses or times, Stop date: 07/02/12 8:00:00 [place] 10/325 oral Route: PO, Drug Form: TAB, Dosing 07/01/2012 07/01/2012 Deleted tablet Weight 90.909, kg, Q6H, PRN as needed for pain, Start date: 07/01/12 13:56:00, Duration: 30 day, Stop date: 07/31/12 13:55:00 Zocor 20 mg, 1 tab, Route: PO, Drug form: 07/02/2012 07/04/2012 Discontinued TAB, QPM, Dosing Weight 90.909, kg, Start date: 07/02/12 9:00:00, Stop date: 07/31/12 17:00:00 lisinopril 10 mg, 1 tab, Route: PO, Drug form: 07/02/2012 07/04/2012 Discontinued TAB, Daily, Dosing Weight 90.909, kg, Start date: 07/02/12 9:00:00, Duration: 30 day, Stop date: 07/31/12 9:00:00 Lexapro 20 mg, 1 tab, Route: PO, Drug form: 07/02/2012 07/04/2012 Discontinued TAB, Daily, Dosing Weight 90.909, kg, Start date: 07/02/12 9:00:00, Duration: 30 day, Stop date: 07/31/12 9:00:00 aspirin 81 mg, 1 tab, Route: PO, Drug form: 07/02/2012 07/04/2012 Discontinued [place], Daily, Dosing Weight 90.909, kg, Start date: 07/02/12 9:00:00, Duration: 30 day, Stop date: 07/31/12 9:00:00 [place] 10/325 oral 1 tab, Route: PO, Drug Form: TAB, 07/01/2012 07/01/2012 Deleted tablet Dosing Weight 90.909, kg, Q4H, PRN as needed for pain, Start date: 07/01/12 13:54:00, Duration: 30 day, Stop date: 07/31/12 13:53:00 cefazolin 2 gm, 100 mL, Route: IVPB, Drug 07/01/2012 07/01/2012 Completed form: INJ, ONCALL, Start date: 07/01/12 0:00:00, Duration: 1 doses or times Lactated Ringers 1,000 mL, Rate: 25 ml/hr, Infuse 07/01/2012 07/04/2012 Discontinued Injection IV 1,000 over: 40 hr, Route: IV, kg, Total mL Volume: 1,000, Start date: 07/01/12 7:06:00, Duration: 30 day, Stop date: 07/31/12 7:05:00 Saline Flush 0.9% 3 mL, Route: IVP, Drug Form: INJ, 07/01/2012 07/04/2012 Discontinued Dosing Weight 90.909, kg, PRN, PRN Line Flush, Start date: 07/01/12 7:18:00, Duration: 30 day, Stop date: 07/31/12 7:17:00 Dextrose 5% with 1,000 mL, Rate: 100 ml/hr, Infuse 07/01/2012 07/04/2012 Discontinued 0.9% NaCl IV 1,000 over: 10 hr, Route: IV, kg, Total mL Volume: 1,000, Start date: 07/01/12 7:18:00, Duration: 30 day, Stop date: 07/31/12 7:17:00 rivaroxaban 10 mg, Route: PO, Daily, Dosing 07/01/2012 07/01/2012 Deleted Weight 90.909, kg, Start date: 07/01/12 9:00:00, Duration: 30 day, Stop date: 07/30/12 9:00:00 [place] 10/325 oral 1 tab, Route: PO, Drug Form: TAB, 07/01/2012 07/04/2012 Discontinued tablet Dosing Weight 90.909, kg, Q4H, PRN Pain, Start date: 07/01/12 7:18:00, Duration: 30 day, Stop date: 07/31/12 7:17:00 [place] 10/325 oral 2 tab, Route: PO, Drug Form: TAB, 07/01/2012 07/04/2012 Discontinued tablet Dosing Weight 90.909, kg, Q4H, PRN Pain, Start date: 07/01/12 7:18:00, Duration: 30 day, Stop date: 07/31/12 7:17:00 Fleet Enema 133 mL, Route: AK, Drug Form: TYLER, 07/01/2012 07/04/2012 Discontinued Dosing Weight 90.909, kg, PRN, PRN as needed for constipation, Start date: 07/01/12 7:18:00, Duration: 30 day, Stop date: 07/31/12 7:17:00 Milk of Magnesia 30 ml, Route: PO, Drug Form: SUSP, 07/01/2012 07/04/2012 Discontinued Dosing Weight 90.909, kg, PRN, PRN as needed for constipation, Start date: 07/01/12 7:18:00, Duration: 30 day, Stop date: 07/31/12 7:17:00 docusate 100 mg, 1 cap, Route: PO, Drug 07/01/2012 07/04/2012 Discontinued form: CAP, BID, Dosing Weight 90.909, kg, Start date: 07/01/12 9:00:00, Duration: 30 day, Stop date: 07/30/12 17:00:00 promethazine 25 mg, 1 mL, Route: IM, Drug form: 07/01/2012 07/04/2012 Discontinued INJ, Q8H, Dosing Weight 90.909, kg, PRN Nausea & Vomiting, Start date: 07/01/12 7:18:00, Duration: 30 day, Stop date: 07/31/12 7:17:00 diphenhydrAMINE 25 mg, 1 cap, Route: PO, Drug form: 07/01/2012 07/04/2012 Discontinued CAP, Q6H, Dosing Weight 90.909, kg, PRN Itching, Start date: 07/01/12 7:18:00, Duration: 30 day, Stop date: 07/31/12 7:17:00 morphine Sulfate 8 mg, 0.8 mL, Route: IM, Drug form: 07/01/2012 07/04/2012 Discontinued INJ, Q4H, Dosing Weight 90.909, kg, PRN Pain Score 7-10, Start date: 07/01/12 7:18:00, Duration: 30 day, Stop date: 07/31/12 7:17:00 morphine Sulfate 4 mg, 1 mL, Route: IM, Drug form: 07/01/2012 07/04/2012 Discontinued INJ, Q4H, Dosing Weight 90.909, kg, PRN Pain Score 4-6, Start date: 07/01/12 7:18:00, Duration: 30 day, Stop date: 07/31/12 7:17:00 ketorolac 15 mg, 0.5 mL, Route: IVP, Drug 07/01/2012 07/01/2012 Voided With form: INJ, Q6H, Dosing Weight Results 90.909, kg, PRN Breakthrough Pain, Start date: 07/01/12 7:18:00, Duration: 4 doses or times, Stop date: Limited # of times ondansetron 4 mg, 2 mL, Route: IVP, Drug form: 07/01/2012 07/04/2012 Discontinued INJ, Q8H, Dosing Weight 90.909, kg, PRN Nausea & Vomiting, Start date: 07/01/12 7:18:00, Duration: 30 day, Stop date: 07/31/12 7:17:00 zolpidem 5 mg, 1 tab, Route: PO, Drug form: 07/01/2012 07/04/2012 Discontinued TAB, Bedtime, Dosing Weight 90.909, kg, PRN Insomnia, Start date: 07/01/12 7:18:00, Duration: 30 day, Stop date: 07/31/12 7:17:00 acetaminophen 650 mg, 20.3 mL, Route: PO, Drug 07/01/2012 07/04/2012 Discontinued form: LIQ, Q4H, Dosing Weight 90.909, kg, PRN Pain/Fever, Start date: 07/01/12 7:18:00, Duration: 30 day, Stop date: 07/31/12 7:17:00 cefazolin (SCIP) 2 gm, Route: IVPB, Drug form: INJ, 07/01/2012 07/01/2012 Deleted Q8H, Dosing Weight 90.909, kg, Start date: 07/01/12 8:00:00, Duration: 3 doses or times, Stop date: 07/02/12 0:00:00 [place] 10/325 oral 1-2 tab, PO, Q4-6H, PRN, 40 tab, 07/01/2012 07/06/2012 Ordered tablet Pain, Substitution Allowed, Maintenance ondansetron 4 mg, 2 mL, Route: IVP, Drug form: 07/01/2012 07/04/2012 Discontinued INJ, ONCE, Dosing Weight 90.909, kg, PRN Nausea & Vomiting, Start date: 07/01/12 9:57:00, Duration: 1 doses or times, Stop date: Limited # of times acetaminophen-oxycod 2 tab, Route: PO, Drug Form: TAB, 07/01/2012 07/04/2012 Discontinued one 325 mg-5 mg oral Dosing Weight 90.909, kg, Q4H, PRN tablet Pain Score 7-10, Start date: 07/01/12 9:57:00, Duration: 30 day, Stop date: 07/31/12 9:56:00 acetaminophen-oxycod 1 tab, Route: PO, Drug Form: TAB, 07/01/2012 07/04/2012 Discontinued one 325 mg-5 mg oral Dosing Weight 90.909, kg, Q4H, PRN tablet Pain Score 4-6, Start date: 07/01/12 9:57:00, Duration: 30 day, Stop date: 07/31/12 9:56:00 naloxone 0.04 mg, 0.1 mL, Route: IVP, Drug 07/01/2012 07/04/2012 Discontinued form: INJ, Q2MIN, Dosing Weight 90.909, kg, PRN Narcotic Reversal, Start date: 07/01/12 9:57:00, Duration: 30 day, Stop date: 07/31/12 9:56:00 ropivacaine 0.2% in Dosincc/hr, Route: NERVE 07/01/2012 07/04/2012 Discontinued NS - site 1 400 mL BLOCK, Start date: 07/01/12 9:57:00 400 mL, Drug Form: INJ, Dosing Weight 90.909, kg, Duration: 30 day, Stop date: 07/31/12 9:56:00 rivaroxaban 10 mg 10 mg, 1 tab, PO, Daily, 12 tab, 07/04/2012 Ordered oral tablet Substitution Allowed, TAB aspirin 81 mg, PO, Daily, Substitution 06/13/2012 Ordered Allowed Motrin 400 mg oral 400 mg, 1 tab, PO, Q4H, PRN, 60 06/13/2012 Ordered tablet tab, Pain, Substitution Allowed, TAB Vital Signs Most recent to oldest [Reference Range]: 1 2 3 Height 182 cm (07/01/2012 12:08:00) 182.88 cm (06/13/2012 13:07:00) Temperature Oral [96.4-99.1 DegF] 99 DegF (07/04/2012 08:00:00) 98.3 DegF (07/04/2012 04:15:00) 97.9 DegF (07/04/2012 00:00:00) Systolic Blood Pressure [90-140 mmHg] 109 mmHg (07/04/2012 08:00:00) 105 mmHg (07/04/2012 04:15:00) 120 mmHg (07/04/2012 00:00:00) Diastolic Blood Pressure [60-90 mmHg] 69 mmHg (07/04/2012 08:00:00) 62 mmHg (07/04/2012 04:15:00) 70 mmHg (07/04/2012 00:00:00) Respiratory Rate [14-20 BRMIN] 18 BRMIN (07/04/2012 08:00:00) 18 BRMIN (07/04/2012 04:15:00) 18 BRMIN (07/04/2012 00:00:00) Peripheral Pulse Rate [60-100 bpm] 86 bpm (07/04/2012 08:00:00) 98 bpm (07/04/2012 04:15:00) 85 bpm (07/04/2012 00:00:00) Weight 90.909 kg (07/01/2012 12:08:00) 90.909 kg (06/13/2012 13:07:00) Results BACTERIAL - SEROLOGY Most recent to oldest [Reference Range]: 1 2 3 MRSA by PCR Negative 1 (06/13/2012 13:18:00) 1Interpretive Data: Interpretive Data: The [employer] [...] reaction (PCR) assay detects a proprietary sequence indicat don of the integration of the SCCmec cassette into the Staphylococcus aureus chr omosome, indicating the presence of MRSA DNA. The assay utilizes FDA cleared IV D reagents. Performance characteristics have been verified by the [facility] within the [facility]. The [facility] is authorized under the Clinical Laboratory Improvement Amendment of 1 988 (CLIA-88) to perform high complexity testing. CHEMISTRY Most recent to oldest [Reference Range]: 1 2 3 Sodium Lvl [135-145 mEq/L] 145 mEq/L (07/02/2012 03:10:00) 140 mEq/L (06/13/2012:09:00) Potassium Lvl [3.5-5.1 mEq/L] 3.9 mEq/L (07/02/2012 03:10:00) 4.1 mEq/L (06/13/2012:09:00) Chloride Lvl [95-109 mEq/L] 104 mEq/L (07/02/2012 03:10:00) CO2 [24-32 mEq/L] 31 mEq/L (07/02/2012 03:10:00) AGAP [10.0-20.0 mEq/L] 13.9 mEq/L (07/02/2012 03:10:00) Creatinine Lvl [0.5-1.4 mg/dL] 0.9 mg/dL (07/02/2012 03:10:00) eGFR 96 mL/min/1.73m2 2 *NA* (07/02/2012 03:10:00) BUN [7-22 mg/dL] 12 mg/dL (07/02/2012 03:10:00) Glucose Lvl [70-99 mg/dL] 131 mg/dL 3 *HI* (07/02/2012 03:10:00) Calcium Lvl [8.5-10.5 mg/dL] 8.2 mg/dL *LOW* (07/02/2012 03:10:00) 2Result Comment: The eGFR is calculated using [...] from the National Kidney Disease Education Program ( NKDEP) which additionally recommends that when the eGFR is used in patients with extremes of body mass index for purposes of drug dosing, the eGFR should be mul tiplied by the estimated BMI. 3Interpretive Data: Adult reference range values reflect the clinical guidelines of the [place] [employer]. HEMATOLOGY Most recent to oldest [Reference Range]: 1 2 3 WBC [3.7-10.4 K/CMM] 10.1 K/CMM (07/02/2012 03:10:00) RBC [4.70-6.10 M/CMM] 3.50 M/CMM *LOW* (07/02/2012 03:10:00) Hgb [14.0-18.0 g/dL] 9.1 g/dL *LOW* (07/03/2012 04:05:42) 10.9 g/dL *LOW* (07/02/2012 03:10:00) 15.2 g/dL (06/13/2012 13:09:00) Hct [42.0-54.0 %] 26.9 % *LOW* (07/03/2012 04:05:42) 32.3 % *LOW* (07/02/2012 03:10:00) 45.0 % (06/13/2012 13:09:00) MCV [80.0-94.0 fL] 92.4 fL (07/02/2012 03:10:00) MCH [27.0-31.0 pg] 31.3 pg *HI* (07/02/2012 03:10:00) MCHC [32.0-36.0 g/dL] 33.8 g/dL (07/02/2012 03:10:00) RDW [11.5-14.5 %] 12.8 % (07/02/2012 03:10:00) Platelet [133-450 K/CMM] 179 K/CMM (07/02/2012 03:10:00) MPV [7.4-10.4 fL] 8.3 fL (07/02/2012 03:10:00) Segs [45.0-75.0 %] 72.6 % (07/02/2012 03:10:00) Lymphocytes [20.0-40.0 %] 12.5 % *LOW* (07/02/2012 03:10:00) Monocytes [2.0-12.0 %] 14.5 % *HI* (07/02/2012 03:10:00) Eosinophils [0.0-4.0 %] 0.2 % (07/02/2012 03:10:00) Basophils [0.0-1.0 %] 0.2 % (07/02/2012 03:10:00) Segs-Bands # [1.5-8.1 K/CMM] 7.4 K/CMM (07/02/2012 03:10:00) Lymphocytes # [1.0-5.5 K/CMM] 1.3 K/CMM (07/02/2012 03:10:00) Monocytes # [0.0-0.8 K/CMM] 1.5 K/CMM *HI* (07/02/2012 03:10:00) Eosinophils # [0.0-0.5 K/CMM] 0.0 K/CMM (07/02/2012 03:10:00) Basophils # [0.0-0.2 K/CMM] 0.0 K/CMM (07/02/2012 03:10:00) Procedures Procedures Date Related Diagnosis Cholecystectomy Knee joint operation 1 Lumbar discectomy 1998 1multiple "x 7"
--- OUTSIDE RECORDS SUMMARY | 2018-09-25 05:41 | XMS REPORT ---
Author Author Anibal Osorio Organization [employer] Address Unknown Phone Unavailable Care Team Providers Care Ostomy Rn Name Role Phone Anibal Osorio CP Unavailable Allergies No Known Allergies Problems Problem Type Condition Code Onset Dates Condition Status Assessment Mixed hyperlipidemia E78.2 Active Problem Hypotestosteronemia E29.1 Active Assessment Hypotestosteronemia E34.9 Active Problem HTN (hypertension), benign I10 Active Problem Mixed hyperlipidemia E78.2 Active Problem Arthritis of right shoulder region M19.011 Active Problem Insomnia G47.00 Active Problem Anxiety F41.9 Active Problem Rotator cuff tear arthropathy of right shoulder M12.811 Active Problem HLD (hyperlipidemia) E78.5 Active Medications Medication Code System Code Instructions Start Date End Date Status Dosage Testosterone Cypionate [facility] [address]-16 200 MG/ML Intramuscular EVERY TWO WEEKS Active 1 ml Simvastatin [facility] [address]-18 40 MG Orally Once a day Active 1 tablet in the evening Results No Known Results Summary Purpose eClinicalWorks Submission
--- OUTSIDE RECORDS SUMMARY | 2018-09-25 05:41 | XMS REPORT | Summary of Care ---
Author Author [facility] Organization [facility] Address Unknown Phone Unavailable Encounter HQ Bonnie_jimi(FIN) [id number] Date(s): 12/09/17 - 12/09/17 [facility] [address] [place] [address]- Encounter Diagnosis Radiculopathy, lumbar region (Final) - 12/16/17 Spinal stenosis, lumbosacral region (Final) - Spondylosis without myelopathy or radiculopathy, lumbosacral region (Final) - Discharge Disposition: Home or Self Care Attending Physician: Anibal Osorio MD Vital Signs No [...]
--- OUTSIDE RECORDS SUMMARY | 2018-09-25 05:41 | XMS REPORT ---
Author Author Anibal Osorio [facility] eClinicalWorks Address Unknown Phone Unavailable Care Team Providers Care Customer Engineer Name Role Phone Anibal Osorio CP Unavailable Allergies, Adverse Reactions, Alerts Substance Reaction Event Type sulfa Info Not Available Drug Allergy Codeine Sulfate Info Not Available Drug Allergy Problems Problem Type Condition Code Onset Dates Condition Status Assessment Insomnia G47.00 Active Problem Hypotestosteronemia E29.1 Active Assessment HTN (hypertension), benign I10 Active Assessment Hypotestosteronemia E34.9 Active Assessment Anxiety F41.9 Active Problem HTN (hypertension), benign I10 Active Problem Mixed hyperlipidemia E78.2 Active Problem Arthritis of right shoulder region M19.011 Active Problem Insomnia G47.00 Active Problem Anxiety F41.9 Active Problem Rotator cuff tear arthropathy of right shoulder M12.811 Active Problem HLD (hyperlipidemia) E78.5 Active Medications Medication Code System Code Instructions Start Date End Date Status Dosage Trazodone HCl [facility] [address]-25 100 MG by mouth Once a day Active 1 tablet Lisinopril [facility] 86884445487 20 Inactive TAKE 1 TABLET BY MOUTH EVERY DAY BusPIRone HCl [facility] [address]-41 15 MG Orally Twice a day July 20, 2016 Inactive 1 tablet Fenofibrate [facility] 93719554692 48 MG Orally Once a day Active 1 tablet Escitalopram Oxalate [facility] [address]-05 20 MG Orally Once a day Active 1 tablet Lisinopril [facility] [address]-06 30 MG Orally Once a day Jun 18, 2016 Active 1 tablet Testosterone Cypionate [facility] [address]-64 200 MG/ML Intramuscular EVERY TWO WEEKS Active 1 ml Simvastatin [facility] [address]-11 40 MG Orally Once a day Active 1 tablet in the evening Alprazolam [facility] [address]-28 0.5 MG Orally Three times a day Active 1 tablet Vital Signs Date/Time: Nov 23, 2016 BMI 26.44 Index Weight 195 lbs Height 72.0 in Temperature 97.6 F Cardiac Monitoring Heart Rate 74 /min Blood Pressure Diastolic 81 mm Hg Blood Pressure Systolic 135 mm Hg Results No Known Results Summary Purpose eClinicalWorks Submission
--- OUTSIDE RECORDS SUMMARY | 2018-09-25 05:41 | XMS REPORT ---
Author Author April Salter [facility] eClinicalWorks Address Unknown Phone Unavailable Care Team Providers Care College Service Officer Name Role Phone April Salter CP Unavailable Allergies, Adverse Reactions, Alerts Substance Reaction Event Type Codeine throat swelling Drug Allergy Sulfur rash Drug Allergy Encounters Encounter Location Date Unknown April Salter MD May 01, 2013 Follow-up for mutiple problems April Salter MD Mar 05, 2014 Problems Problem Type Condition ICD-9 Code Onset Dates Condition Status Problem Derangement of posterior horn of medial meniscus 717.2 Active Problem Knee joint replacement by other means V43.65 Active Problem Mixed hyperlipidemia 272.2 Active Problem Impotence 607.84 Active Assessment Rotator cuff (capsule) sprain and strain 840.4 Active Problem Depressive disorder, not elsewhere classified 311 Active Assessment 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 Assessment Impotence 607.84 Active Problem Rotator cuff (capsule) sprain and strain 840.4 Active Problem Impotence of organic origin 607.84 Active Problem Nonspecific abnormal results of liver function study 794.8 Active Problem 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 Problem Acute bronchitis 466.0 Active Problem Generalized anxiety disorder 300.02 Active Problem Unspecified tinnitus 388.30 Active Assessment Mixed hyperlipidemia 272.2 Active Assessment HTN Hypertension - Unspecified essential hypertension 401.9 Active Problem Panic disorder without agoraphobia 300.01 Active Problem hyperlipidemia - Other and unspecified hyperlipidemia 272.4 Active Problem Allergic rhinitis due to other allergen 477.8 Active Problem HTN Hypertension - Unspecified essential hypertension 401.9 Active Problem Other testicular hypofunction 257.2 Active Problem 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 Medications Medication Code System Code Instructions Start Date End Date Status Dosage Lisinopril [facility] [address]-96 10 mg Orally Once a day Active 1 tablet Testosterone Cypionate [facility] [address]-18 200 MG/ML Intramuscular Active inject 1ml every 2 weeks Trazodone HCl [facility] [address]-33 100 mg Orally Once a day Active 1 tablet at bedtime [place] [facility] [address]-07 7.5-325 MG Orally every 6 hrs Mar 05, 2014 Apr 04, 2014 Active 1 tablet as needed Aspirin [facility] [address]-88 325 MG Orally Once a day Active 1 tablet Escitalopram Oxalate [facility] 04635462428 20 Active TAKE 1 TABLET BY MOUTH ONCE A DAY Simvastatin [facility] [address]-27 40 mg Orally Once a day Active 1 tablet every evening Xanax [facility] [address]-07 0.5 MG Orally twice a day (bid) as needed (prn) Active 1 tablet Social History Social History Element Qualifiers Date Reported Do you take aspirin or a blood thinner drug? . YES Mariah Loza 02/16/2013 2:00:52 PM > Mar 05, 2014 Tobacco Use: . Are you a: former smoker quit since 06/2010Mar 05, 2014 Marital Status: . MarriedDagoMariah 02/16/2013 2:01:02 PM > Mar 05, 2014 Do you drink alcohol? . Status: No Mar 05, 2014 Family history Qualifier Description Comment Date Reported Mother anxiety Mar 05, 2014 Siblings anxiety Mar 05, 2014 Vital Signs Date/Time: Mar 05, 2014 Weight 206.6 lbs Height 71.5 in Temperature 98.6 F Cardiac Monitoring Heart Rate 69 /min Blood Pressure Diastolic 92 mm Hg Blood Pressure Systolic 138 mm Hg Respiratory Rate 18 /min Immunizations Vaccine Administration Date FLU VACCINE NO PRESERV 3 & > Mar 05, 2014 Summary Purpose eClinicalWorks Submission
--- OUTSIDE RECORDS SUMMARY | 2018-09-25 05:41 | XMS REPORT ---
Author Author Anibal Osorio [facility] eClinicalWorks Address Unknown Phone Unavailable Care Team Providers Care Hand Sewer Name Role Phone Anibal Osorio CP Unavailable Allergies, Adverse Reactions, Alerts Substance Reaction Event Type sulfa Info Not Available Drug Allergy Codeine Sulfate Info Not Available Drug Allergy Problems Problem Type Condition Code Onset Dates Condition Status Assessment HTN (hypertension), benign I10 Active Problem Hypotestosteronemia E29.1 Active Assessment Annual physical exam Z00.00 Active Problem HTN (hypertension), benign I10 Active Problem Mixed hyperlipidemia E78.2 Active Problem Arthritis of right shoulder region M19.011 Active Problem Insomnia G47.00 Active Problem Anxiety F41.9 Active Problem Rotator cuff tear arthropathy of right shoulder M12.811 Active Problem HLD (hyperlipidemia) E78.5 Active Assessment Insomnia G47.00 Active Assessment Mixed hyperlipidemia E78.2 Active Assessment Hypotestosteronemia E29.1 Active Assessment Flu vaccine need Z23 Active Assessment Anxiety F41.9 Active Medications Medication Code System Code Instructions Start Date End Date Status Dosage Testosterone Cypionate [facility] [address]-16 200 MG/ML Intramuscular EVERY TWO WEEKS Active 1 ml Simvastatin [facility] [address]-04 40 MG Orally Once a day Active 1 tablet in the evening Alprazolam [facility] [address]-67 0.5 MG Orally Three times a day Active 1 tablet Trazodone HCl [facility] [address]-81 100 MG by mouth Once a day Active 1 tablet [address]inopril [facility] [address]-66 30 MG Orally Once a day Jun 18, 2016 Active 1 tablet Fenofibrate [facility] 50948579101 48 MG Orally Once a day Active 1 tablet Escitalopram Oxalate [facility] [address]-54 20 MG Orally Once a day Active 1 tablet Vital Signs Date/Time: Feb 08, 2017 BMI 26.95 Index Weight 198.7 lbs Height 72.0 in Temperature 96.3 F Cardiac Monitoring Heart Rate 74 /min Blood Pressure Diastolic 70 mm Hg Blood Pressure Systolic 132 mm Hg Results No Known Results Immunizations Vaccine Administration Date Influenza Vaccine Feb 08, 2017 Summary Purpose eClinicalWorks Submission
--- OUTSIDE RECORDS SUMMARY | 2018-09-25 05:41 | XMS REPORT | CCD ---
Author Author Auto Generated Organization [facility] Address Unknown Phone Unavailable Care Team Providers Care Thermodynamics Professor Name Role Phone Jose Figueroa CP Allergies, Adverse Reactions, Alerts Substance Reaction Status codeine Active sulfa drugs Active Problem List Condition Effective Dates Status Anxiety depression Resolved Back pain Resolved HTN - Hypertension Active HTN - Hypertension Resolved Injury of knee Active Near syncope Active OA - Osteoarthritis Resolved
--- OUTSIDE RECORDS SUMMARY | 2018-09-25 05:41 | XMS REPORT ---
Author Author Anibal Osorio Organization eClinicalWorks Address Unknown Phone Unavailable Care Team Providers Care Final Canoe Inspector Name Role Phone Anibal Osorio CP Unavailable Allergies No Known Allergies Problems Problem Type Condition Code Onset Dates Condition Status Assessment Insomnia G47.00 Active Problem Mixed hyperlipidemia E78.2 Active Problem Rotator cuff tear arthropathy of right shoulder M12.811 Active Problem HTN (hypertension), benign I10 Active Problem Anxiety F41.9 Active Problem Hypotestosteronemia E29.1 Active Problem HLD (hyperlipidemia) E78.5 Active Problem Insomnia G47.00 Active Medications Medication Code System Code Instructions Start Date End Date Status Dosage Trazodone HCl [facility] [address]-58 100 MG by mouth Once a day Active 1 tablet Results No Known Results Summary Purpose eClinicalWorks Submission
--- OUTSIDE RECORDS SUMMARY | 2018-09-25 05:41 | XMS REPORT | CCD ---
Author Author Auto Generated Organization [facility] Address Unknown Phone Unavailable Care Team Providers Care Dyslexia Teacher Name Role Phone Jose Figueroa CP Allergies, Adverse Reactions, Alerts Substance Reaction Status codeine Active sulfa drugs Active Problem List Condition Effective Dates Status HTN - Hypertension Active Injury of knee Active Near syncope Active
--- OUTSIDE RECORDS SUMMARY | 2018-09-25 05:42 | XMS REPORT | Encounter Summary ---
Author Organization Unknown Address [address] [place] [address] Phone [phone] Reason for Visit Medical Complaint Instructions 1. Acute sinusitis sinusitis: care instructions Bromfed DM 2 mg-30 mg-10 mg/5 mL syrup Augmentin 875 mg-125 mg tablet Discussion Note: None recorded. Plan of Care Patient Instructions Try warm salt water gargles, throat lozanges, soups ortea with honey and/or lemon juice to soothe the throat. Take ibuprofen or tylenolevery 6 hours as neededfor fever, pain and/or swelling of throat.Please monitor your BP while taking bromfed, it it is above normal range stop bromfed and contact your PCP. Consider using a saline sinus wash or NetiPot for sinus cleansing. Return to clinic if symptoms do not resolve in 1 week. Reminders Provider Appointments None recorded. Lab None recorded. Referral None recorded. Procedures None recorded. Surgeries None recorded. Imaging None recorded. Medications Name Start Date Augmentin 875 mg-125 mg tablet Take 1 tablet(s) every 12 hours by oral route with meals for 10 days. Bromfed DM 2 mg-30 mg-10 mg/5 mL syrup Take 10 mL every 6 hours by oral route as needed for cough. lisinopril lovastatin Zithromax Z-Donnie 250 mg tablet take as directed Medications Administered None recorded. Vitals Height Weight BMI Blood Pressure 6 ft 200 lbs 27.1 122/82 Lab Results None recorded. Allergies Name Reaction Severity Onset Codeine Rash Moderate to Severe Sulfa (Sulfonamide Antibiotics) Other Problems Name Status Onset Date Source Acute Sinusitis Active Encounter Acute Maxillary Sinusitis Active Encounter Upper Respiratory Tract Hypersensitivity Reaction Active Encounter Procedures Date Name Performed by Cholecystectomy Information not available Removal of Tonsils Information not available Vaccine List Vaccine Type influenza, seasonal, injectable 01/19/2015 Social History Smoking Status Never Smoker Past Encounters 10/01/2015 Acute Sinusitis LISHA Yarbrough: [address] [place] [address], Ph. History of Present Illness Fdthc-Trgkousmxn-Ydymnau Reported By: Patient HPI: Location: head/sinuses. Quality: productive cough, sore throat, colored phlegm, nasal/sinus congestion, hacking cough, dry cough. Duration: 2 weeksdays. Severity: moderate. Onset/Timing: gradual. Context: no sick contacts, no foreign travel, non-smoker, allergies. Modifying factors: OTC medication. Associated Symptoms: no shortness of breath, no wheezing, no change in number of pillows needed to sleep at night, no sweats, no significant weight gain, no significant weight loss, no morning cough, no sore throat, no vomiting, no diarrhea, no rash, no nausea, yellow-green, thick sputum Review of Systems Basic Reported By: Patient Constitutional: Constitutional: fever Eyes: Eyes: no eye complaints Kbng-Ypjw-Uwpjq-Throat: Ears: no ear complaints. Nose: nose/sinus problems. Mouth/Throat: no bleeding gums, no mouth complaints, no teeth problems, sore throat Cardiovascular: Cardiovascular: no chest pain, no shortness of breath, no known heart murmur Respiratory: Respiratory: no wheezing, no shortness of breath, cough Gastrointestinal: Gastrointestinal: no abdominal pain, no vomiting / diarrhea Genitourinary: Genitourinary: no urinary complaints, no discharge Musculoskeletal: Musculoskeletal: no muscle aches, no muscle weakness, no arthralgias/joint pain, no back pain Skin: Skin: no abnormal / changing mole, no jaundice, no rashes Neurologic: Neurologic: no loss of consciousness, no weakness, no numbness, no seizures, no dizziness, headache Physical Exam Adult Basic, Adult Male Complete Constitutional: General Appearance: healthy-appearing, well-nourished, well-developed. Level of Distress: NAD. Ambulation: ambulating normally Psychiatric: Mental Status: active and alert. Orientation: to time, to place, to person Eyes: Lids and Conjunctivae: non-injected, no discharge, no pallor. Pupils: PERRLA. EOM: EOMI. Lens: clear. Sclerae: non-icteric Ize-Twtq-Zfoiz-Throat: Ears: no lesions on external ear, no outer ear tenderness, EACs clear, TMs clear, TM mobility normal. Hearing: no hearing loss. Nose: no lesions on external nose, nares patent, no septal deviation, nasal passages clear, sinus tenderness, nasal discharge--purulent, post nasal drip. Lips, Teeth, and Gums: no mouth or lip ulcers, no bleeding gums, normal dentition. Oropharynx: moist mucous membranes, no exudates, tonsils not enlarged, erythema Neck: Neck: supple. Lymph Nodes: anterior cervical LAD Lungs: Respiratory effort: no dyspnea, no tachypnea. Auscultation: breath sounds normal, good air movement Cardiovascular: Heart Auscultation: RRR, no murmurs Neurologic: Gait and Station: normal gait Skin: Inspection and palpation: no rash
--- OUTSIDE RECORDS SUMMARY | 2018-09-25 05:42 | XMS REPORT ---
Author Author Anibal Osorio [facility] eClinicalWorks Address Unknown Phone Unavailable Care Team Providers Care Assistant Women'S Tennis Coach Name Role Phone Anibal Osorio CP Unavailable Allergies No Known Allergies Problems Problem Type Condition Code Onset Dates Condition Status Problem Insomnia G47.00 Active Assessment Anxiety F41.9 Active Problem HTN (hypertension), benign I10 Active Problem Mixed hyperlipidemia E78.2 Active Problem Arthritis of right shoulder region M19.011 Active Problem Anxiety F41.9 Active Problem HLD (hyperlipidemia) E78.5 Active Problem Rotator cuff tear arthropathy of right shoulder M12.811 Active Problem Hypotestosteronemia E29.1 Active Medications Medication Code System Code Instructions Start Date End Date Status Dosage Escitalopram Oxalate [facility] 15770078237 20 mg Orally Once a day Active 1 tablet Results No Known Results Summary Purpose eClinicalWorks Submission
--- OUTSIDE RECORDS SUMMARY | 2018-09-25 05:42 | XMS REPORT | Encounter Summary ---
Author Organization Unknown Address [address] [place] [address] Phone [phone] Reason for Visit Medical Complaint Instructions 1. Acute maxillary sinusitis Augmentin 875 mg-125 mg tablet fluticasone 50 mcg/actuation nasal spray,suspension benzonatate 200 mg capsule 2. Eustachian tube disorder 3. Abnormal blood pressure Discussion Note: None recorded. Patient educational handouts: No information available. Plan of Care Patient Instructions Take meds as prescribed. Ok to start on zyrtec daily. Stop fabiana seltzer at home and avoid all decongestants. Continue to monitor bp at home. If still trending 140/90 with meds, follow up with pcp. Reminders Provider Appointments None recorded. Lab None recorded. Referral None recorded. Procedures None recorded. Surgeries None recorded. Imaging None recorded. Medications Name Start Date Augmentin 875 mg-125 mg tablet Take 1 tablet every 12 hours by oral route with meals for 10 days. benzonatate 200 mg capsule Take 1 capsule 3 times a day by oral route as needed for cough. fluticasone 50 mcg/actuation nasal spray,suspension [place] 2 sprays every day by intranasal route at bedtime for nasal congestion for 5 days. lisinopril lovastatin Medications Administered None recorded. Vitals Height Weight BMI Blood Pressure 6 ft 198 lbs 26.9 (1) 150/98 (2) 138/86 Lab Results None recorded. Allergies Name Reaction Severity Onset Codeine Rash Moderate to Severe Sulfa (Sulfonamide Antibiotics) Other Problems Name Status Onset Date Source Eustachian Tube Disorder Active Encounter Acute Sinusitis Active Encounter Acute Maxillary Sinusitis Active Encounter Upper Respiratory Tract Hypersensitivity Reaction Active Encounter Procedures Date Name Performed by Cholecystectomy Information not available Removal of Tonsils Information not available Vaccine List Vaccine Type influenza, seasonal, injectable 01/19/2015 Social History Smoking Status Never Smoker Past Encounters 03/03/2016 Acute Maxillary Sinusitis; Eustachian Tube Disorder; Abnormal Blood Pressure LISHA Benjamin: [address] [place] [address], Ph. History of Present Illness Hwxvg-Jxvydokcfv-Zdschct Reported By: Patient HPI: Location: head/sinuses. Quality: productive cough, colored phlegm, nasal/sinus congestion. Duration: 10days. Severity: moderate. Onset/Timing: gradual. Context: no sick contacts, no foreign travel, non-smoker. Modifying factors: OTC medication. Associated Symptoms: no shortness of breath, no wheezing, no change in number of pillows needed to sleep at night, no sweats, no significant weight gain, no significant weight loss, no morning cough, no sore throat, no vomiting, no diarrhea, no rash, no nausea, green sputum Review of Systems Basic Reported By: Patient Constitutional: Constitutional: fever Eyes: Eyes: no eye complaints Uuit-Bzcx-Efpet-Throat: Ears: no ear complaints. Nose: nose/sinus problems. Mouth/Throat: no sore throat, no bleeding gums, no mouth complaints, no teeth problems Cardiovascular: Cardiovascular: no chest pain, no shortness [...] Physical Exam Adult Basic, Adult Male Complete Reported By: Patient Constitutional: General Appearance: healthy-appearing, well-nourished, well-developed. Level of Distress: NAD. Ambulation: ambulating normally Psychiatric: Mental Status: active and alert. Orientation: to time, to place, to person Eyes: Lids and Conjunctivae: non-injected, no discharge, no pallor. Pupils: PERRLA. Corneas: grossly intact. EOM: EOMI. Lens: clear. Sclerae: non-icteric. Vision: acuity grossly intact, peripheral vision grossly intact Jrk-Ivkm-Ajgip-Throat: Ears: no lesions on external ear, no outer ear tenderness, EACs clear, TMs clear, middle ear fluid. Hearing: no hearing loss. Nose: no lesions on external nose, nares patent, no septal deviation, nasal passages clear, sinus tenderness, nasal discharge--purulent, post nasal drip. Lips, Teeth, and Gums: no mouth or lip ulcers, no bleeding gums, normal dentition. Oropharynx: moist mucous membranes, no exudates, erythema, tonsils absent Neck: Neck: supple, trachea midline, no masses, FROM. Lymph Nodes: no supraclavicular LAD, anterior cervical LAD. Thyroid: no enlargement, non-tender, no nodules Lungs: Respiratory effort: no dyspnea, no tachypnea, no use of accessory muscles, no intercostal retractions. Auscultation: breath sounds normal, good air movement Cardiovascular: Heart Auscultation: RRR, no murmurs
--- OUTSIDE RECORDS SUMMARY | 2018-09-25 05:42 | XMS REPORT ---
Author Author Anibal Osorio [facility] eClinicalWorks Address Unknown Phone Unavailable Care Team Providers Care Panel Raiser Operator Name Role Phone Anibal Osorio CP Unavailable Allergies, Adverse Reactions, Alerts Substance Reaction Event Type sulfa Info Not Available Drug Allergy Codeine Sulfate Info Not Available Drug Allergy Encounters Encounter Location Date Unknown [facility] Jun 08, 2016 Unknown [facility] Dec 20, 2015 Unknown [facility] Feb 27, 2016 3 month f/u [facility] Feb 14, 2016 Problems Problem Type Condition ICD-9 Code Onset Dates Condition Status Assessment Hypotestosteronemia E29.1 Active Assessment Rotator cuff injury, right, subsequent encounter S46.001D Active Assessment Anxiety F41.9 Active Problem Mixed hyperlipidemia E78.2 Active Problem Rotator cuff tear arthropathy of right shoulder M12.811 Active Problem HTN (hypertension), malignant I10 Active Problem Anxiety F41.9 Active Problem Hypotestosteronemia E29.1 Active Problem HLD (hyperlipidemia) E78.5 Active Problem Insomnia G47.00 Active Assessment Insomnia G47.00 Active Assessment Mixed hyperlipidemia E78.2 Active Assessment HTN (hypertension), malignant I10 Active Medications Medication Code System Code Instructions Start Date End Date Status Dosage Fenofibrate [facility] 01289971976 48 MG Orally Once a day Active 1 tablet Lisinopril [facility] [address]-18 20 MG Orally Once a day Jun 08, 2016 Active 1 tablet Testosterone Cypionate [facility] [address]-17 200 MG/ML Intramuscular EVERY TWO WEEKS Active 1 ml Alprazolam [facility] [address]-92 0.5 MG Orally Three times a day Active 1 tablet Simvastatin [facility] [address]-96 40 MG Orally Once a day Active 1 tablet in the evening Trazodone HCl [facility] [address]-26 100 MG Orally Once a day Active 1 tablet at bedtime Lisinopril [facility] [address]-61 10 mg Orally Once a day Inactive 1 tablet Escitalopram Oxalate [facility] [address]-38 20 MG Orally Once a day Active 1 tablet Social History Social History Element Qualifiers Date Reported Do you take Aspirin, or a blood thinner . No I do not take aspirin / or a blood thinner Jun 18, 2016 Tobacco Use: . Are you a: current smoker, How many years have you smoked? 20, Additional Findings: Tobacco Non-User Ex-light cigarette smoker (1-9/day) Jun 18, 2016 Use of recreational / street drugs? . Answer: No Jun 18, 2016 Marital Status: . Jun 18, 2016 Caffeine intake? . Status: Yes, What type: Coffee, 1 cup a day Jun 18, 2016 Do you exercise? . Answer: Yes, Type: walking Jun 18, 2016 Do you drink alcohol? . Status: Yes, Type: Beer, How Often? Rarely Jun 18, 2016 Travel outside [place]: . 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
--- OUTSIDE RECORDS SUMMARY | 2018-09-25 05:42 | XMS REPORT ---
Author Author Anibal Osorio [facility] eClinicalWorks Address Unknown Phone Unavailable Care Team Providers Care Central Office Inspector Name Role Phone Anibal Osorio CP Unavailable Allergies, Adverse Reactions, Alerts Substance Reaction Event Type sulfa Info Not Available Drug Allergy Codeine Sulfate Info Not Available Drug Allergy Encounters Encounter Location Date Unknown [facility] Dec 20, 2015 Unknown [facility] Feb 27, 2016 3 month f/u [facility] Feb 14, 2016 Problems Problem Type Condition ICD-9 Code Onset Dates Condition Status Assessment Hypotestosteronemia E29.1 Active Assessment HTN (hypertension) I10 Active Assessment HLD (hyperlipidemia) E78.5 Active Assessment Anxiety F41.9 Active Problem HTN (hypertension) I10 Active Problem HLD (hyperlipidemia) E78.5 Active Problem Rotator cuff tear arthropathy of right shoulder M12.811 Active Problem Hypotestosteronemia E29.1 Active Assessment Rotator cuff tear arthropathy of right shoulder M12.811 Active Problem Insomnia G47.00 Active Problem Anxiety F41.9 Active Medications Medication Code System Code Instructions Start Date End Date Status Dosage Simvastatin [facility] [address]-06 40 MG Orally Once a day Active 1 tablet in the evening Alprazolam [facility] [address]-65 0.5 MG Orally Three times a day Active 1 tablet Lisinopril [facility] [address]-91 10 mg Orally Once a day Active 1 tablet Testosterone Cypionate [facility] [address]-53 200 MG/ML Intramuscular EVERY TWO WEEKS Active 1 ml Trazodone HCl [facility] [address]-70 100 MG Orally Once a day Active 1 tablet at bedtime Escitalopram Oxalate [facility] [address]-03 20 MG Orally Once a day Active 1 tablet Fenofibrate [facility] [address]-91 48 MG Orally Once a day Dec 20, 2015 Active 1 tablet Social History Social History Element Qualifiers Date Reported Do you take Aspirin, or a blood thinner . No I do not take aspirin / or a blood thinner Feb 14, 2016 Tobacco Use: . Are you a: current smoker, How many years have you smoked? 20, Additional Findings: Tobacco Non-User Ex-light cigarette smoker (1-9/day) Feb 14, 2016 Use of recreational / street drugs? . Answer: No Feb 14, 2016 Marital Status: . Feb 14, 2016 Caffeine intake? . Status: Yes, What type: Coffee, 1 cup a day Feb 14, 2016 Do you exercise? . Answer: Yes, Type: walking Feb 14, 2016 Do you drink alcohol? . Status: Yes, Type: Beer, How Often? Rarely Feb 14, 2016 Travel outside [place]: . 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
--- OUTSIDE RECORDS SUMMARY | 2018-09-25 05:42 | XMS REPORT ---
Author Author [facility] Address Unknown Phone Unavailable Care Team Providers Care Cathead Worker Name Role Phone TIMOTHY FRIEDMAN Unavailable Unavailable Problems This patient has no known problems. Allergies, Adverse Reactions, Alerts This patient has no known allergies or adverse reactions. Medications This patient has no known medications. Results Test Description Test Time Test Comments Text Results Atomic Results Result Comments CHEST 2 VIEWS 2018-09-23 14:39:00 [place] [address] Patient Name: BEATRIZ COLEMAN III MR #: [id number] : 1955 Age/Sex: 63/M Req #: [id number] Adm Physician: Ordered by: TIMOTHY FRIEDMAN MD Report #: [id number] Location: OR Room/Bed: Procedure: [id number] DX/CHEST 2 VIEWS Exam Date: 09/23/18 Exam Time: 1425 REPORT STATUS: Signed EXAMINATION: PA and lateral views of the chest. COMPARISON: None CLINICAL HISTORY: Preoperative study for spinal surgery. DISCUSSION: Lungs are well-inflated. No focal airspace consolidation, pleural effusion, or pneumothorax. Calcified granuloma laterally within the right lower lobe. Tortuous thoracic aorta with atherosclerotic calcification. Normal heart size without overt pulmonary edema. No acute osseous abnormality. IMPRESSION: No acute cardiopulmonary abnormalities. Signed by: Dr. Ginette Lloyd M.D. on 09/23/2018 2:41 PM Dictated By: GINETTE LLOYD MD 1441 Transcribed By: ROXI on 09/23/18 1441 COPY TO: TIMOTHY FRIEDMAN MD
--- OUTSIDE RECORDS SUMMARY | 2018-09-25 05:42 | XMS REPORT | Encounter Summary ---
Author Organization Unknown Address [address] [place] [address] Phone [phone] Care Team Providers Care Co Founder And Cto Name Role Phone Anibal Osorio 3 [phone] Reason for Visit Medical Complaint Instructions 1. Acute sinusitis sinusitis: care instructions Augmentin 875 mg-125 mg tablet fluticasone 50 mcg/actuation nasal spray,suspension 2. Elevated blood pressure elevated blood pressure: care instructions dash diet: care instructions blood pressure monitoring education 3. Body mass index 25-29 - overweight learning about healthy weight Discussion Note: None recorded. Plan of Care Patient Instructions Your Care Instructions Sinusitis is an infection of the lining of the sinus cavities in your head. Sinusitis often follows a cold. It causes pain and pressure in your head and face. In most cases, sinusitis gets better on its own in 1 to 2 weeks. But some mild symptoms may last for several weeks. Sometimes antibiotics are needed. Follow-up care is a whitman part of your treatment and safety. Be sure to make and go to all appointments, and call your doctor if you are having problems. It's also a good idea to know your test results and keep a list of the medicines you take. How can you care for yourself at home? Take an ozbt-hja-oqutctm pain medicine, such as acetaminophen (Tylenol), ibuprofen (Advil, Motrin), or naproxen (Aleve). Read and follow all instructions on the label. If the doctor prescribed antibiotics, take them as directed. Do not stop taking them just because you feel better. You need to take the full course of antibiotics. Be careful when taking ifye-nkt-xlqcuwn cold or flu medicines and Tylenol at the same time. Many of these medicines have acetaminophen, which is Tylenol. Read the labels to make sure that you are not taking more than the recommended dose. Too much acetaminophen (Tylenol) can be harmful. Breathe warm, moist air from a steamy shower, a hot bath, or a sink filled with hot water. Avoid cold, dry air. Using a humidifier in your home may help. Follow the directions for cleaning the machine. Use saline (saltwater) nasal washes to help keep your nasal passages open and wash out mucus and bacteria. You can buy saline nose drops at a grocery store or drugstore. Or you can make your own at home by adding 1 teaspoon of salt and 1 teaspoon of baking soda to 2 cups of distilled water. If you make your own, fill a bulb syringe with the solution, insert the tip into your nostril, and squeeze gently. Blow your nose. Put a hot, wet towel or a warm gel pack on your face 3 or 4 times a day for 5 to 10 minutes each time. Try a decongestant nasal spray like oxymetazoline (Afrin). Do not use it for more than 3 days in a row. Using it for more than 3 days can make your congestion worse. When should you call for help? Call your doctor now or seek immediate medical care if: You have new or worse swelling or redness in your face or around your eyes. You have a new or higher fever. Watch closely for changes in your health, and be sure to contact your doctor if: You have new or worse facial pain. The mucus from your nose becomes thicker (like pus) or has new blood in it. You are not getting better as expected. Reminders Provider Appointments None recorded. Lab None recorded. Referral None recorded. Procedures None recorded. Surgeries None recorded. Imaging None recorded. Medications Name Start Date alprazolam 0.5 mg tablet TK 1 T PO TID Augmentin 875 mg-125 mg tablet Take 1 tablet every 12 hours by oral route for 10 days. escitalopram 20 mg tablet TK 1 T PO QD fenofibrate nanocrystallized 48 mg tablet TK 1 T PO QD fluticasone 50 mcg/actuation nasal spray,suspension [place] 1 spray every day by intranasal route. lisinopril 30 mg tablet TK 1 T PO QD simvastatin 40 mg tablet TK 1 T PO QD IN THE SILVANA testosterone cypionate 200 mg/mL intramuscular oil INJ 1 ML INTRAMUSCULAR Q 2 WEEKS trazodone 100 mg tablet TK 1 T PO QD Medications Administered None recorded. Vitals Height Weight BMI Blood Pressure 6 ft 202 lbs 27.4 kg/m2 (1) 120/80 mm[Hg] (2) 122/80 mm[Hg] Lab Results None recorded. Allergies Code Code System Name Reaction Severity Status Onset 347 RxNorm Codeine Active Problems Name Status Onset Date Source Hypercholesterolemia Active 05/29/2018 Anxiety Active 05/29/2018 Hypertensive Disorder Active 05/29/2018 Procedures Date Name Performed by Shoulder Joint Surgery Information not available Knee Arthroscopy/surgery Information not available Vaccine List Vaccine Type influenza, injectable, quadrivalent 02/20/2018 influenza, unspecified formulation 01/20/2017 zoster, unspecified formulation 07/20/2016 Social History Smoking Status Former Smoker Past Encounters 05/29/2018 Acute Sinusitis; Elevated Blood Pressure; Body Mass Index 25-29 - Overweight [facility] [place], [facility]: [address] [place] [address], Ph. History of Present Illness Phubp-Fqyhfgrpkq-Rucjmgp Reported By: Patient HPI: Location: head/sinuses. Quality: nasal/sinus congestion. Duration: 14days. Severity: moderate. Onset/Timing: gradual. Context: no sick contacts, no foreign travel, non-smoker. Associated Symptoms: no sputum production, no shortness of breath, no wheezing, no change in number of pillows needed to sleep at night, no sweats, no significant weight gain, no significant weight loss, no morning cough, no sore throat, no vomiting, no diarrhea, no rash, no nausea, no fever, no muscle aches, no headache Review of Systems:ROS as noted in the HPI Review of Systems Basic Reported By: Patient Physical Exam Adult Basic, Adult Male Complete Reported By: Patient Constitutional: General Appearance: healthy-appearing, well-nourished, well-developed, overweight. Level of Distress: NAD. Ambulation: ambulating normally Psychiatric: Mental Status: active and alert. Orientation: to time, to place, to person Ezd-Mnsp-Kckkz-Throat: Ears: no lesions on external ear, no outer ear tenderness, EACs clear, TMs clear. Hearing: no hearing loss. Nose: no lesions on external nose, nares patent, no septal deviation, nasal passages clear, no nasal discharge, sinus tenderness. Lips, Teeth, and Gums: no mouth or lip ulcers, no bleeding gums, normal dentition. Oropharynx: moist mucous membranes, no erythema, no exudates, tonsils not enlarged Lungs: Respiratory effort: no dyspnea, no tachypnea, no use of accessory muscles, no intercostal retractions. Auscultation: breath sounds normal, good air movement Cardiovascular: Heart Auscultation: RRR, no murmurs
--- OUTSIDE RECORDS SUMMARY | 2018-09-25 05:42 | XMS REPORT | Encounter Summary ---
Author Organization Unknown Address [address] [place] [address] Phone [phone] Care Team Providers Care Squaring Machine Operator Name Role Phone Anibal Osorio 3 [phone] Reason for Visit Medical Complaint Instructions 1. Gastroenteritis gastroenteritis: care instructions rapid flu (A+B) metronidazole 500 mg tablet 2. Body mass index 25-29 - overweight Discussion Note Pt is in NAD; Verbalizes understanding of all instructions with no questions at this time. Plan of Care Patient Instructions Stay hydrated pedialyte or gatorade, eat a liquid diet for the first four hours. Stay away from fried and spicy foods until symptoms resolve. If you do experience improvement in your symptoms within the next four hours, advance yourself to a carbohydrate-rich diet such as white rice, white bread, and crackers. Within the next four hours thereafter, you can advance to lean meats such as chicken, fish, and turkey. Four hours thereafter if symptoms do improve, then advance to a regular diet. Take metronidazole as directed and avoid acohol for a week after completing medication. Follow up with your PCP within 2-3 should symptoms worsen as discussed. Recommend monitor BP at home and document, bring BP log to PCP for review. Recommend follow a low sodium diet and exercise 30-45 mins/d 3-4 days a week Reminders Provider Appointments None recorded. Lab Rapid Flu (A+B) 05/08/2017 [facility] Referral None recorded. Procedures None recorded. Surgeries None recorded. Imaging None recorded. Medications Name Start Date alprazolam 0.5 mg tablet TK 1 T PO TID escitalopram 20 mg tablet TK 1 T PO QD fenofibrate nanocrystallized 48 mg tablet TK 1 T PO QD lisinopril 30 mg tablet TK 1 T PO QD metronidazole 500 mg tablet Take 1 tablet every 8 hours by oral route as directed for 7 days. simvastatin 40 mg tablet TK 1 T PO QD IN THE SILVANA testosterone cypionate 200 mg/mL intramuscular oil INJECT 1 ML IM Q 2 WEEKS trazodone 100 mg tablet TK 1 T PO QD Zostavax (PF) 19,400 unit/0.65 mL subcutaneous suspension Medications Administered None recorded. Vitals Height Weight BMI Blood Pressure 6 ft 198 lbs 26.9 kg/m2 130/80 mm[Hg] Lab Results Date Name Specimen Result Interpretation Description Value Range Status Address Rapid Flu (A+B) Influenza a negative [facility]: [address] [place] [address] Influenza B negative [facility]: [address] [place] [address] Allergies Code Code System Name Reaction Severity Status Onset 2670 RxNorm Codeine Active Problems None recorded. Procedures Date Name Performed by Shoulder Joint Surgery Information not available Knee Arthroscopy/surgery Information not available Vaccine List Vaccine Type influenza, unspecified formulation 01/20/2017 zoster, unspecified formulation 07/20/2016 Social History Smoking Status Former Smoker Past Encounters 05/08/2017 Gastroenteritis; Body Mass Index 25-29 - Overweight Mariposa Berman, [employer]-C: [address] [place] [address], Ph. History of Present Illness Clmdml-Mgtjzngy-Dozzeavj / Abdominal Pain Reported By: Patient HPI: Quality: watery, frequent. Severity: moderate. Duration: present for < 1 week, symptoms last for how long?. Onset/Timing: worse with meals, gradual onset, 10- 20 times a day. Context: no one else with similar symptoms, no recent camping, no recent picnic, no possible food sources, no recent travel; not recent colonoscopy. Alleviating factors: better with fasting. Aggravating factors: eating. Associated Symptoms: no abdominal pain, no excess gas, no fever/chills, no rash, no joint pain, no weight loss, no vomiting, no heartburn, no blood in stool, no mucus in stool, no black or tarry stools, no weakness, no nutrient deficiency, no headache, no feeling of fullness/mass in throat, no muscle aches, no bitter taste in the mouth, no difficulty swallowing (dysphagia); watery diarrhea Review of Systems:ROS as noted in the HPI Review of Systems Basic Reported By: Patient Physical Exam Adult Basic, Adult Female Complete, Adult Male Complete Reported By: Patient Constitutional: General Appearance: healthy-appearing, well-nourished, well-developed, overweight. Level of Distress: NAD. Ambulation: ambulating normally Psychiatric: Mental Status: active and alert. Orientation: to time, to place, to person Eyes: Lids and Conjunctivae: non-injected, no pallor Zwf-Brnt-Vrwhl-Throat: Lips, Teeth, and Gums: no mouth or lip ulcers, no bleeding gums, normal dentition. Oropharynx: moist mucous membranes, no erythema, no exudates, tonsils not enlarged Neck: Neck: supple. Lymph Nodes: no cervical LAD Lungs: Respiratory effort: no dyspnea, no tachypnea, no use of accessory muscles, no intercostal retractions. Auscultation: breath sounds normal Cardiovascular: Heart Auscultation: RRR, no murmurs Abdomen: Bowel Sounds: high-pitched. Inspection and Palpation: soft, non-distended, no tenderness, no guarding, no rebound tenderness, no masses, no CVA tenderness. Liver: non-tender, no hepatomegaly. Spleen: non-tender, no splenomegaly. Hernia: none palpable
--- OUTSIDE RECORDS SUMMARY | 2018-09-25 05:42 | XMS REPORT ---
Author Author Anibal Osorio [facility] eClinicalWorks Address Unknown Phone Unavailable Care Team Providers Care Pump Runner Name Role Phone Anibal Osorio CP Unavailable Allergies No Known Allergies Problems Problem Type Condition Code Onset Dates Condition Status Problem Insomnia G47.00 Active Assessment HTN (hypertension), benign I10 Active Problem HTN (hypertension), benign I10 Active Problem Mixed hyperlipidemia E78.2 Active Problem Arthritis of right shoulder region M19.011 Active Problem Anxiety F41.9 Active Problem HLD (hyperlipidemia) E78.5 Active Problem Rotator cuff tear arthropathy of right shoulder M12.811 Active Problem Hypotestosteronemia E29.1 Active Medications Medication Code System Code Instructions Start Date End Date Status Dosage Lisinopril [facility] 90195156142 30 MG Orally Once a day Jun 18, 2016 Active 1 tablet Results No Known Results Summary Purpose eClinicalWorks Submission
--- OUTSIDE RECORDS SUMMARY | 2018-09-25 05:42 | XMS REPORT ---
Author Author Anibal Osorio Organization eClinicalWorks Address Unknown Phone Unavailable Care Team Providers Care Sociology Adjunct Instructor Name Role Phone Anibal Osorio CP Unavailable Allergies, Adverse Reactions, Alerts Substance Reaction Event Type Codeine Sulfate Info Not Available Drug Allergy Problems Problem Type Condition Code Onset Dates Condition Status Assessment Annual physical exam Z00.00 Active Problem Insomnia G47.00 Active Problem HTN (hypertension), benign I10 Active Problem Mixed hyperlipidemia E78.2 Active Problem Arthritis of right shoulder region M19.011 Active Problem Anxiety F41.9 Active Problem HLD (hyperlipidemia) E78.5 Active Problem Rotator cuff tear arthropathy of right shoulder M12.811 Active Problem Hypotestosteronemia E29.1 Active Assessment Flu vaccine need Z23 Active Assessment Hypotestosteronemia E29.1 Active Assessment Insomnia G47.00 Active Assessment HTN (hypertension), benign I10 Active Assessment Mixed hyperlipidemia E78.2 Active Assessment Encounter for screening Z13.9 Active Assessment Anxiety F41.9 Active Assessment Lumbar radiculopathy, acute M54.16 Active Medications Medication Code System Code Instructions Start Date End Date Status Dosage Fenofibrate [facility] 32608155650 48 MG Orally Once a day Active 1 tablet Alprazolam [facility] 27439281029 0.5 MG Orally Three times a day Active 1 tablet Lisinopril [facility] 33858446054 30 MG Orally Once a day Jun 18, 2016 Active 1 tablet Escitalopram Oxalate [facility] 38041229098 20 mg Orally Once a day Active 1 tablet Testosterone Cypionate [facility] 45024621516 200 MG/ML Intramuscular EVERY TWO WEEKS Active 1 ml Tramadol HCl [facility] 43540901100 50 mg Orally every 6 hrs Dec 20, 2017 Apr 01, 2018 Active 1 tablet as needed Trazodone HCl [facility] 19397898753 100 MG by mouth Once a day Active 1 tablet Pregabalin [facility] [address]-48 75 mg Orally twice a day (bid) Dec 20, 2017 Active 1 capsule Simvastatin [facility] 90675104701 40 MG Orally Once a day Active 1 tablet in the evening Vital Signs Date/Time: Jan 31, 2018 BMI 26.67 Index Weight 196.7 lbs Height 72.0 in Temperature 96.8 F Cardiac Monitoring Heart Rate 58 /min Blood Pressure Diastolic 78 mm Hg Blood Pressure Systolic 134 mm Hg Results Name Result Date Reference Range Unit Abnormality Flag CBC (INCLUDES DIFF/PLT) ----ABSOLUTE NEUTROPHILS 5417 [id number] 1670-6156 cells/uL N ----MPV 10.7 52915008 7.5-12.5 fL N ----EOSINOPHILS 1.8 15569762 % N ----HEMOGLOBIN 16.6 83655244 13.2-17.1 g/dL N ----MONOCYTES 7.2 59950014 % N ----HEMATOCRIT 49.2 83109277 38.5-50.0 % N ----LYMPHOCYTES 16.3 75696462 % N ----MCV 90.4 68965488 80.0-100.0 fL N ----NEUTROPHILS 74.2 00120771 % N ----MCH 30.5 91172797 27.0-33.0 pg N ----ABSOLUTE BASOPHILS 37 53939719 0-200 cells/uL N ----MCHC 33.7 65719294 32.0-36.0 g/dL N ----BASOPHILS 0.5 03330114 % N ----ABSOLUTE EOSINOPHILS 131 99565643 15-500 cells/uL N ----RDW 12.6 76099779 11.0-15.0 % N ----WHITE BLOOD CELL COUNT 7.3 14584167 3.8-10.8 Thousand/uL N ----PLATELET COUNT 202 64832616 140-400 Thousand/uL N ----ABSOLUTE MONOCYTES 526 43299343 200-950 cells/uL N ----RED BLOOD CELL COUNT 5.44 63093487 4.20-5.80 Million/uL N ----ABSOLUTE LYMPHOCYTES 1190 18779248 850-3900 cells/uL N HIV 1/2 ANTIGEN/ANTIBODY, FOURTH GENERATION W/RFL ----HIV AG/AB, 4TH GEN NON-REACTIVE 13600095 NON-REACTIVE N LIPID PANEL ----NON HDL CHOLESTEROL 104 71104933 <130 mg/dL (calc) N ----CHOL/HDLC RATIO 3.3 19672778 <5.0 (calc) N ----CHOLESTEROL, TOTAL 150 96226395 <200 mg/dL N ----HDL CHOLESTEROL 46 85455999 >40 mg/dL N ----TRIGLYCERIDES 131 07749883 <150 mg/dL N ----LDL-CHOLESTEROL 81 73381102 mg/dL (calc) N COMPREHENSIVE METABOLIC PANEL ----SODIUM 139 35987974 135-146 mmol/L N ----BUN/CREATININE RATIO NOT APPLICABLE 20112593 6-22 (calc) ----CHLORIDE 103 99642273 98-110 mmol/L N ----POTASSIUM 4.8 11345127 3.5-5.3 mmol/L N ----CALCIUM 9.5 19821078 8.6-10.3 mg/dL N ----PROTEIN, TOTAL 6.7 21506158 6.1-8.1 g/dL N ----CARBON DIOXIDE 26 71581309 20-32 mmol/L N ----ALBUMIN/GLOBULIN RATIO 2.4 34893725 1.0-2.5 (calc) N ----eGFR NON-AFR. [place]AN 76 05408404 > OR=60 mL/min/1.73m2 N ----BILIRUBIN, TOTAL 0.7 37668313 0.2-1.2 mg/dL N ----eGFR 88 62218415 > OR=60 mL/min/1.73m2 N ----UREA NITROGEN (BUN) 13 20180131 7-25 mg/dL N ----ALBUMIN 4.7 93013728 3.6-5.1 g/dL N ----GLOBULIN 2.0 32790172 1.9-3.7 g/dL (calc) N ----CREATININE 1.05 34870595 0.70-1.25 mg/dL N ----ALT 16 95474286 9-46 U/L N ----GLUCOSE 81 69092382 65-139 mg/dL N ----ALKALINE PHOSPHATASE 63 17288982 40-115 U/L N ----AST 17 91594627 10-35 U/L N HEMOGLOBIN A1c ----HEMOGLOBIN A1c 4.8 21228725 <5.7 % of total Hgb N PSA, TOTAL ----PSA, TOTAL 0.6 20180131 < OR=4.0 ng/mL N VITAMIN D, 25-HYDROXY, LC/MS/MS ----VITAMIN D,25-OH,TOTAL,IA 28 20180131 30-100 ng/mL L TSH ----TSH 1.13 20180131 0.40-4.50 mIU/L N VITAMIN B12 ----VITAMIN B12 517 20180131 200-1100 pg/mL N Immunizations Vaccine Administration Date INFLUENZA II Multi Jan 31, 2018 Summary Purpose eClinicalWorks Submission
--- OUTSIDE RECORDS SUMMARY | 2018-09-25 05:42 | XMS REPORT ---
Author Author Anibal Osorio [facility] eClinicalWorks Address Unknown Phone Unavailable Care Team Providers Care Patternmaker All Around Name Role Phone Anibal Osorio CP Unavailable Allergies, Adverse Reactions, Alerts Substance Reaction Event Type sulfa Info Not Available Drug Allergy Codeine Sulfate Info Not Available Drug Allergy Problems Problem Type Condition Code Onset Dates Condition Status Assessment Hypotestosteronemia E29.1 Active Assessment Anxiety F41.9 Active Problem Rotator cuff tear arthropathy of right shoulder M12.811 Active Problem HLD (hyperlipidemia) E78.5 Active Problem Mixed hyperlipidemia E78.2 Active Problem Hypotestosteronemia E29.1 Active Assessment HTN (hypertension), malignant I10 Active Problem Insomnia G47.00 Active Problem Anxiety F41.9 Active Medications Medication Code System Code Instructions Start Date End Date Status Dosage Trazodone HCl [facility] [address]-84 100 MG Orally Once a day Active 1/2 half tablet Escitalopram Oxalate [facility] [address]-96 20 MG Orally Once a day Active 1 tablet Alprazolam [facility] [address]-30 0.5 MG Orally Three times a day Active 1 tablet Simvastatin [facility] [address]-24 40 MG Orally Once a day Active 1 tablet in the evening Testosterone Cypionate [facility] [address]-57 200 MG/ML Intramuscular EVERY TWO WEEKS Active 1 ml Fenofibrate [facility] 52664375017 48 MG Orally Once a day Active 1 tablet Lisinopril [facility] [address]-30 20 MG Orally Once a day Jun 08, 2016 Inactive 1 tablet BusPIRone HCl [facility] [address]-49 7.5 MG Orally Twice a day Jun 18, 2016 Active 1 tablet Lisinopril [facility] [address]-30 30 MG Orally Once a day Jun 18, 2016 Active 1 tablet Vital Signs Date/Time: Jun 18, 2016 BMI 27.53 Index Weight 203 lbs Height 72.0 in Temperature 98.1 F Cardiac Monitoring Heart Rate 86 /min Blood Pressure Diastolic 98 mm Hg Blood Pressure Systolic 180 mm Hg Results No Known Results Summary Purpose eClinicalWorks Submission
--- OUTSIDE RECORDS SUMMARY | 2018-09-25 05:42 | XMS REPORT ---
Author Author Anibal Osorio [facility] [place] eClinicalWorks Address Unknown Phone Unavailable Care Team Providers Care Preparole Counseling Aide Name Role Phone Anibal Osorio CP Unavailable Allergies, Adverse Reactions, Alerts Substance Reaction Event Type sulfa Info Not Available Drug Allergy Codeine Sulfate Info Not Available Drug Allergy Problems Problem Type Condition Code Onset Dates Condition Status Assessment Hypotestosteronemia E29.1 Active Assessment HTN (hypertension), benign I10 Active Assessment Anxiety F41.9 Active Problem Mixed hyperlipidemia E78.2 Active Problem Rotator cuff tear arthropathy of right shoulder M12.811 Active Problem HTN (hypertension), benign I10 Active Problem Anxiety F41.9 Active Problem Hypotestosteronemia E29.1 Active Problem HLD (hyperlipidemia) E78.5 Active Problem Insomnia G47.00 Active Medications Medication Code System Code Instructions Start Date End Date Status Dosage BusPIRone HCl [facility] [address]-30 15 MG Orally Twice a day July 20, 2016 Active 1 tablet Trazodone HCl [facility] [address]-77 100 MG Orally Once a day Active 1/2 half tablet Simvastatin [facility] [address]-78 40 MG Orally Once a day Active 1 tablet in the evening BusPIRone HCl [facility] [address]-76 7.5 MG Orally Twice a day Jun 18, 2016 Inactive 1 tablet Escitalopram Oxalate [facility] [address]-33 20 MG Orally Once a day Active 1 tablet Testosterone Cypionate [facility] [address]-32 200 MG/ML Intramuscular EVERY TWO WEEKS Active 1 ml Fenofibrate [facility] 59588092770 48 MG Orally Once a day Active 1 tablet Lisinopril [facility] [address]-23 30 MG Orally Once a day Jun 18, 2016 Active 1 tablet Alprazolam [facility] [address]-48 0.5 MG Orally Three times a day Active 1 tablet Vital Signs Date/Time: July 20, 2016 BMI 27.12 Index Weight 200 lbs Height 72.0 in Temperature 97.6 F Cardiac Monitoring Heart Rate 76 /min Blood Pressure Diastolic 74 mm Hg Blood Pressure Systolic 105 mm Hg Results No Known Results Summary Purpose eClinicalWorks Submission
--- OUTSIDE RECORDS SUMMARY | 2018-09-25 05:42 | XMS REPORT ---
Author Author Anibal Osorio [facility] eClinicalWorks Address Unknown Phone Unavailable Care Team Providers Care Dog Control Officer Name Role Phone Anibal Osorio CP Unavailable Encounters Encounter Location Date Unknown [facility] Dec 20, 2015 Problems Problem Type Condition ICD-9 Code Onset Dates Condition Status Problem HLD (hyperlipidemia) E78.5 Active Problem Insomnia G47.00 Active Problem HTN (hypertension) I10 Active Problem Anxiety F41.9 Active Problem Hypotestosteronemia E29.1 Active Medications Medication Code System Code Instructions Start Date End Date Status Dosage Lisinopril [facility] [address]-35 10 mg Orally Once a day Active 1 tablet Fenofibrate [facility] [address]-86 48 MG Orally Once a day Dec 20, 2015 Active 1 tablet Social History Social History Element Qualifiers Date Reported Do you take Aspirin, or a blood thinner . No I do not take aspirin / or a blood thinner November 15, 2015 Tobacco Use: . Are you a: current smoker, How many years have you smoked? 20, Additional Findings: Tobacco Non-User Ex-light cigarette smoker (1-9/day) November 15, 2015 Use of recreational / street drugs? . Answer: No November 15, 2015 Marital Status: . November 15, 2015 Caffeine intake? . Status: Yes, What type: Coffee, 1 cup a day November 15, 2015 Do you exercise? . Answer: Yes, Type: walking November 15, 2015 Do you drink alcohol? . Status: Yes, Type: Beer, How Often? Rarely November 15, 2015 Travel outside [place]: . 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
--- OUTSIDE RECORDS SUMMARY | 2018-09-25 05:42 | XMS REPORT ---
Author Author Anibal Osorio Organization eClinicalWorks Address Unknown Phone Unavailable Care Team Providers Care Bit Setter Name Role Phone Anibal Osorio CP Unavailable Allergies No Known Allergies Problems Problem Type Condition Code Onset Dates Condition Status Assessment Hypotestosteronemia E29.1 Active Problem Mixed hyperlipidemia E78.2 Active Problem Rotator cuff tear arthropathy of right shoulder M12.811 Active Problem HTN (hypertension), benign I10 Active Problem Anxiety F41.9 Active Problem Hypotestosteronemia E29.1 Active Problem HLD (hyperlipidemia) E78.5 Active Problem Insomnia G47.00 Active Medications Medication Code System Code Instructions Start Date End Date Status Dosage Testosterone Cypionate [facility] [address]-17 200 MG/ML Intramuscular EVERY TWO WEEKS Active 1 ml Results No Known Results Summary Purpose eClinicalWorks Submission
--- OUTSIDE RECORDS SUMMARY | 2018-09-25 05:42 | XMS REPORT ---
Author Author Anibal Osorio Organization eClinicalWorks Address Unknown Phone Unavailable Care Team Providers Care Refrigerating Machine Operator Name Role Phone Anibal Osorio CP Unavailable Encounters Encounter Location Date Unknown [facility] Dec 20, 2015 Unknown [facility] Feb 27, 2016 Problems Problem Type Condition ICD-9 Code Onset Dates Condition Status Problem HTN (hypertension) I10 Active Problem HLD (hyperlipidemia) E78.5 Active Problem Rotator cuff tear arthropathy of right shoulder M12.811 Active Problem Hypotestosteronemia E29.1 Active Assessment Hypotestosteronemia E29.1 Active Problem Insomnia G47.00 Active Problem Anxiety F41.9 Active Medications Medication Code System Code Instructions Start Date End Date Status Dosage Testosterone Cypionate [facility] [address]-32 200 MG/ML Intramuscular EVERY TWO WEEKS Active 1 ml Social History Social History Element Qualifiers Date [...] . yes Feb 14, 2016 Occupation: . Employed.[employer] Feb 14, 2016 Summary Purpose eClinicalWorks Submission
[2018-09-25] MEDS ORDERED: CEFAZOLIN SOD 2 GM/D5W 50ML 50 ML IV ONE (06:00)
[2018-09-25] MEDS ORDERED: THROMBIN FOR SOLN 5,000 UNIT VIAL ONE (06:39)
[2018-09-25] MEDS ORDERED: GELATIN SPONGE 12-7MM ONE (06:39)
[2018-09-25] MEDS ORDERED: BUPIVACAINE 0.5%/EPI 30 ML SDV INJ ONE (06:39)
[2018-09-25] MEDS ORDERED: BACITRACIN 50,000 UNIT VIAL ONE (06:40)
[2018-09-25] MEDS ORDERED: SUGAMMADEX SODIUM 200 MG/2 ML VIAL IV ONE (07:08)
[2018-09-25] MEDS: LACTATED RINGER'S 1,000 ML IV SCH ×3 (08:36→20:17)
[2018-09-25] MEDS ORDERED: OXYCODONE/ACETAMINOPHEN 5-325 1 EACH TABLET PO PRN (08:45)
[2018-09-25] MEDS ORDERED: MORPHINE SULFATE 5 MG/ML VIAL IM PRN (08:45)
[2018-09-25] MEDS ORDERED: PROMETHAZINE HCL (IM) 25 MG/ML VIAL IM PRN (08:45)
[2018-09-25] MEDS ORDERED: HYDROCODONE/APAP 10MG-325MG TAB PO SCH (08:45)
[2018-09-25] MEDS ORDERED: ACETAMINOPHEN 325 MG TAB PO PRN (08:45)
[2018-09-25] MEDS ORDERED: MAGNESIUM/ALUMINUM/SIMETHICONE 30 ML UDC PO PRN (08:45)
[2018-09-25] MEDS ORDERED: HYDROMORPHONE 2MG/ML 2 MG/ML ML IV PRN (08:45)
[2018-09-25] MEDS ORDERED: ONDANSETRON HCL INJ 2MG/ML 2ML 2 MG/ML VIAL IV PRN (08:45)
[2018-09-25] MEDS ORDERED: FENOFIBRATE 145 MG TAB PO SCH (09:00)
[2018-09-25] MEDS: LISINOPRIL 10 MG TAB PO SCH ×2 (09:00→10:47)
[2018-09-25] MEDS ORDERED: FENTANYL CITRATE/PF 100MCG/2 ML INJ ONE ×2 (09:08→17:36)
--- NOTE | 2018-09-25 09:50 | NUR ---
report received from PACU, patient to arrive to unit via stretcher alert and oriented.
[2018-09-25 10:10] VITALS: BP 144/86
[2018-09-25 10:11] VITALS: BP 144/86
[2018-09-25] MEDS: CARISOPRODOL 350 MG TAB PO PRN ×2 (10:22→15:58)
[2018-09-25] MEDS: GABAPENTIN 100 MG CAP PO SCH ×2 (10:47→15:58)
[2018-09-25] MEDS: ESCITALOPRAM OXALATE 10 MG TAB PO SCH (11:00)
[2018-09-25] MEDS: FENOFIBRATE 48 MG TAB PO SCH (11:00)
[2018-09-25] MEDS: CEFAZOLIN SOD 1 GM/NS 50ML 50 ML IV SCH ×2 (13:50→21:02)
--- NOTE | 2018-09-25 15:42 | Operative Report ---
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 PROCEDURES: Right L3-4 laminotomy, medial facetectomy, and microsurgical diskectomy, 83[address]. ANESTHESIA: General. INDICATIONS: The patient is a 63-year-old man, who presents with a right L3-4 disk herniation with inferior migration of the extruded disk fragment into the right L4 lateral recess. He was taken to the operating room for microsurgical decompression of the L4 nerve root. DESCRIPTION OF PROCEDURE: After induction of general anesthesia, the patient was placed on the operating table in prone position over Parveen frame. Lumbar region was prepped and draped in sterile fashion. Preoperative x-ray was obtained. A small midline incision was created over the L3-4 segment. The lumbar fascia was opened in right of midline and a subperiosteal dissection was carried out to expose the right side of the L3 and L4 lamina and the medial aspect of the facet joint. A 2nd x-ray confirmed correct localization. The operating microscope was brought in. A high-speed drill equipped with garrett bur was used to drill the inferior aspect lamina of L3 and the medial rim of the L3-4 facet joint and superior aspect of lamina of L4. The ligamentum flavum was resected and the L4 nerve root was exposed and followed down to its lateral recess. The extruded disk material came into view just below the disk space and was mobilized with a micro ball probe and removed as several smaller fragments with a micro pituitary rongeur to decompress the L4 nerve root. The opening into the anulus of the disk was enlarged with an #11 blade and the subligamentous portion of the disk herniation was removed. The loose contents of the L3-4 disk were conservatively evacuated with a micropituitary rongeur. Excellent decompression was thus achieved. Hemostasis was achieved by bipolar coagulation and placing a small piece of Gelfoam in the lateral recess on the L4 nerve root. The wound was copiously irrigated with bacitracin solution and closed with #0 and 2-0 Vicryl sutures. The skin was closed with 3-0 Monocryl sutures in subcuticular fashion. Steri-Strips and dressing were applied. The patient was awakened, extubated, and taken to postanesthesia care in stable condition. No intraoperative complications were encountered. ESTIMATED BLOOD LOSS: 20 mL. Joselo Tipton MD PP/MODESTO /[id number]
[2018-09-25] MEDS ORDERED: ROCURONIUM BROMIDE 10 MG/ML 5ML VIAL ONE (17:01)
[2018-09-25] MEDS ORDERED: DEXAMETHASONE SOD PHOS INJ 4 MG/ML VIAL ONE (17:01)
[2018-09-25] MEDS ORDERED: ONDANSETRON HCL INJ 2MG/ML 2ML 2 MG/ML VIAL ONE (17:01)
[2018-09-25] MEDS ORDERED: ACETAMINOPHEN 1000 MG/100 ML IV ONE (17:01)
[2018-09-25] MEDS ORDERED: LIDOCAINE HCL 2% LOCAL INJ 5 ML SDV VIAL INJ ONE (17:01)
[2018-09-25] MEDS ORDERED: PROPOFOL IV EMULSION 10 MG/ML 20 ML VIAL ONE (17:01)
[2018-09-25] MEDS ORDERED: DESFLURANE 240 ML BTL INH ONE (17:01)
[2018-09-25 17:03] VITALS: BP 110/61
[2018-09-25] MEDS ORDERED: MIDAZOLAM HCL 2 MG/2 ML VIAL ONE (17:36)
--- NOTE | 2018-09-25 18:50 | NUR ---
rounded with policy and planning manager nurse, patient aware of change and in no distress. at bedside, call bustos within reach and bed in lowest position.
[2018-09-25 19:01] VITALS: BP 110/61
[2018-09-25 20:00] VITALS: BP 107/61
[2018-09-25] MEDS ORDERED: ZOLPIDEM TARTRATE 5 MG TAB PO PRN (21:00)
[2018-09-25] MEDS ORDERED: TRAZODONE HCL 50 MG TAB PO SCH (21:00)
[2018-09-25] MEDS ORDERED: SIMVASTATIN 40 MG TAB PO SCH (21:00)
[2018-09-26] VITALS: BP 108/60
[2018-09-26 04:00] VITALS: BP 96/55
[2018-09-26] MEDS: CEFAZOLIN SOD 1 GM/NS 50ML 50 ML IV SCH (05:00)
[2018-09-26] MEDS: CARISOPRODOL 350 MG TAB PO PRN (05:05)
[2018-09-26] MEDS: LACTATED RINGER'S 1,000 ML IV SCH (09:36)
[2018-09-26 10:06] VITALS: BP 123/70
[2018-09-26] MEDS: ESCITALOPRAM OXALATE 10 MG TAB PO SCH (10:50)
[2018-09-26] MEDS: GABAPENTIN 100 MG CAP PO SCH (10:50)
[2018-09-26] MEDS: FENOFIBRATE 48 MG TAB PO SCH (10:52)
[2018-09-26] MEDS: LISINOPRIL 10 MG TAB PO SCH (10:52)
[2018-09-26 11:04] VITALS: BP 123/78
[2018-09-26] MEDS ORDERED: NORCO 7.5-3251 EACH PO ×2 (11:09→11:10)
== END 2018-09-26 12:15 | disposition home or self-care (01) ==
LOC: OR 05:34 → PACU V 08:37 → IMCU 10:04
PROVIDERS: ADMIT Neurological Surgery; ATTEND Neurological Surgery
DX: M51.16 Intervertebral disc disorders with radiculopathy, lumbar region (principal); Z01.810 Encounter for preprocedural cardiovascular examination; Z01.812 Encounter for preprocedural laboratory examination; Z01.811 Encounter for preprocedural respiratory examination; Z88.5 Allergy status to narcotic agent; Z88.2 Allergy status to sulfonamides; I10 Essential (primary) hypertension; E78.5 Hyperlipidemia, unspecified; M19.90 Unspecified osteoarthritis, unspecified site; F41.9 Anxiety disorder, unspecified
CPT/HCPCS: 36415; 63047; 71046; 72020; 80048; 85025; 85610; 85730; 86850; 86900; 88305; 89060; 93005; G0378 ×2; J0131; J0690 ×2; J1100; J1170; J2001; J2250; J2405; J2704; J7121; 88304